=== PATIENT | male | born 1940 | race Caucasian/White ===

== ENCOUNTER 2017-07-16 12:31 | Inpatient (IN) ==
[~2017-07-16 12:31] MED LIST: KETAMINE 10 MG/ML ML IV PRN; MIDAZOLAM 2 MG/2 ML VIAL IV SCH; PROPOFOL 200 MG/20 ML VIAL IV SCH
[2017-07-16] MEDS ORDERED: MIDAZOLAM 2 MG/2 ML VIAL IV ONE (14:24)
[2017-07-16] MEDS ORDERED: PROPOFOL 200 MG/20 ML VIAL IV ONE ×2 (14:24→21:40)
[2017-07-16] MEDS ORDERED: DEXTROSE 5%-1/2NS 1,000 ML IV SCH (16:30)
[2017-07-16] MEDS ORDERED: HYDROmorphone 2 MG/ML VIAL IV SCH (17:15)
[2017-07-16] MEDS ORDERED: ONDANSETRON 4 MG/2 ML VIAL IV ONE ×2 (17:47→21:40)
[2017-07-16] MEDS ORDERED: ONDANSETRON 4 MG/2 ML VIAL ONE (17:49)
[2017-07-16] MEDS ORDERED: LORazepam 2 MG/ML VIAL IV PRN ×2 (17:58→18:53)
[2017-07-16] MEDS ORDERED: HYDROmorphone 2 MG/ML VIAL IV PRN ×2 (17:58→18:53)
[2017-07-16] MEDS ORDERED: PIPERACILLIN SODIUM/TAZOBACTAM 3.375 GM in DEXTROSE 5% IN WATER 50 ML IV SCH ×2 (18:00→20:00)
--- NOTE | 2017-07-16 18:08 | General Surg History&Physical ---
History of Present Illness Patient information: Note initiated : 07/16/17 at 5:59 pm Service Date, if different from initiated Date: [] Patient: Macho Morgan a 76 y/o M admitted on for Colonoscopy. Chief Complaint: [] HPI: Mr. Morgan is a 76 year old M who is status post screening colonoscopy earlier today. During the procedure it was noted that part of the colon was in a large left inguinal hernia. During the colonoscopy the scope was maneuvered in the hernia but at the end of the procedure it was difficult to get the scope out of the hernia sac. After the procedure was completed the patient had a very firm nonreducible hernia with increased pain. It is felt that he has an incarcerated hernia. He also had some increase fullness and burping. He has passed gas and he has voided since the end of the procedure. Patient is admitted and will have urgent CT of the abdomen and pelvis and a decision will be made as to whether or not the hernia should be repaired tonight or in the morning. He is status post left inguinal hernia repair in 2014 but had a recurrence shortly thereafter. Review of Systems - Constitutional no fatigue, no headache(s), no malaise, no weight loss - EENT Nose, mouth and throat: abnormal hearing, dry mouth, headache(s) - Cardiovascular no chest pain at rest, no dyspnea on exertion, no palpatations, no syncope - Respiratory no cough, no dyspnea on exertion, no wheezing, no chest congestion - Gastrointestinal abdominal pain, cramping, heartburn, nausea - Genitourinary nocturia, urinary frequency, urinary urgency - Musculoskeletal arthralgias, myalgias, stiffness - Integumentary no bleeding lesions, no changing lesions, no pruritus, no rash - Neurological no behavioral changes, no convulsions, no vertigo - Psychiatric no anxiety, no depression - Endocrine no excessive sweating, no heat intolerance, no palpitations, no polyuria - Hematologic/Lymphatic no easy bleeding, no easy bruising, no lymphadenopathy - Allergic/Immunologic no tongue swelling, no throat swelling, no uticaria, no wheezing, no lip swelling Past History Past medical history: History of esophageal cancer History of hypertension Chronic kidney disease BPH Past surgical history: Esophagectomy with esophagogastric anastomosis Left inguinal hernia repair Appendectomy Past family history: Carcinoma of the lung Coronary artery disease Past social history: uses chew tobacco Denies drug use Denies alcohol use Medications and Allergies Home Medications Medication Instructions Recorded Confirmed Type Atorvastatin [Lipitor] 20 mg PO HS 07/16/17 07/16/17 History Calcitonin,[place],Synthetic 3.7 ml NS 07/16/17 History [Calcitonin-Milan] Chlorpheniramine Maleate 4 mg PO Q4-6HP PRN 07/16/17 07/16/17 History [Chlor-Trimeton] Finasteride [Proscar] 5 mg PO DAILY 07/16/17 07/16/17 History Irbesartan [Avapro] 150 mg PO DAILY 07/16/17 07/16/17 History Pantoprazole Sodium [Protonix] 40 mg PO BID 07/16/17 07/16/17 History Potassium Chloride [K-Tab ER] 20 meq PO TID 07/16/17 07/16/17 History Spironolactone [Aldactone] 25 mg PO DAILY 07/16/17 07/16/17 History Tamsulosin [Flomax] 0.4 mg PO 1900 07/16/17 07/16/17 History amLODIPine BESYLATE [Amlodipine 10 mg PO DAILY 07/16/17 07/16/17 History Besylate] metFORMIN HCL [Metformin HCl ER] 500 mg PO 1700 07/16/17 07/16/17 History Allergies Allergy/AdvReac Type Severity Reaction Status Date / Time No Known Drug Allergies Allergy Unverified 07/16/17 13:20 Exam Temp Pulse Resp BP Pulse Ox 98.8 F 71 16 182/76 97 07/16/17 17:15 07/16/17 17:15 07/16/17 17:15 07/16/17 17:15 07/16/17 17:15 - General physical appearance well developed, well nourished, no distress - Eyes PERRL, normal ocular movement - ENT normal pinna, normal nares, normal mucosa, no hearing loss, no congestion - Head Head exam IM: Present: atraumatic, normocephalic - Neck no masses, no bruits, trachea midline, no lymphadectomy, no venous distension - Cardiovascular Cardiovascular exam IM: Present: normal rate and rhythm - Respiratory normal expansion, normal respiratory effort, clear to percussion, clear to auscultation - Abdomen Abdomen: Present: soft, non tender, bowel sounds, distended (Mild abdominal distention with active bowel sounds; well-healed upper midline incision) Hernia: Present: inguinal (Tightly incarcerated left inguinal hernia extending into the scrotum no crepitus noted) - Genitourinary Present: normal penis with no external lesions - Integumentary Present: no rash, no growths, no abnormal pigmentation - Neurologic Present: normal coordination, normal sensation - Musculoskeletal Present: normal gait, normal posture - Psychiatric Present: oriented to time, oriented to person, oriented to place, speech is normal, memory intact Assessment and Plan (1) Incarcerated left inguinal hernia Emergency CT of abdomen and pelvis Emergency baseline labs Emergency chest x-ray and EKG IV analgesics Status: Acute (2) History of esophageal cancer Status: Acute (3) Hypertension Hold home medications pending decision on surgery Status: Acute (4) Chronic kidney disease Status: Acute
[2017-07-16] MEDS ORDERED: IOPAMIDOL 100 ML BOTTLE IV ONE (18:47)
[2017-07-16] MEDS ORDERED: ONDANSETRON 4 MG/2 ML VIAL IV PRN (18:53)
[2017-07-16] MEDS ORDERED: METOPROLOL TARTRATE 5 MG/5 ML VIAL IV PRN (18:53)
[2017-07-16] MEDS ORDERED: 0.9 % SODIUM CHLORIDE 1,000 ML IV SCH (18:53)
[2017-07-16 19:36] LABS: Basophils # (Auto) 0 K/mcL (0.0-0.3); Basophils % (Auto) 0.2 % (0.0-2.0); Eosinophils # (Auto) 0 K/mcL (0.0-0.7); Eosinophils % (Auto) 0 % (0.0-7.0); Granulocytes % (Auto) 89.9 % (38.0-78.0); Lymphocytes # (Auto) 0.4 K/mcL (1.5-4.8); Lymphocytes % (Auto) 5.3 % (15.5-49.0); Mean Cell Volume 93.2 fL (80.0-100.0); Mean Corpuscular HGB Conc 33.4 g/dL (31.0-36.0); Mean Corpuscular Hemoglobin 31.1 pg (26.0-34.0); Monocytes # (Auto) 0.4 K/mcL (0.1-0.9); Monocytes % (Auto) 4.6 % (1.0-12.0); Platelet Count 142 K/mcL (140-440); RBC 4.96 M/mcL (4.50-5.90); Red Cell Distribution Width 13.9 % (11.5-14.5)
[2017-07-16] MEDS ORDERED: POTASSIUM CHLORIDE 20 MEQ/10 ML VIAL IV ONE (19:53)
[2017-07-16 19:56] LABS: ALT/SGPT 15 U/l (0-40); Albumin/Globulin Ratio 1.5 (1.0-2.3); Alkaline Phosphatase 78 U/L (39-117); Bilirubin,Direct < 0.2 mg/dL (0.0-0.3); Blood Urea Nitrogen 17 mg/dl (8-23); Gamma Glutamyl Transpeptidase 21 U/L (8-61); Uric Acid 4.6 mg/dL (2.5-8.0)
[2017-07-16] MEDS: POTASSIUM CHLORIDE 40 MEQ in DEXTROSE 5% IN WATER 500 ML IV SCH (20:35)
[2017-07-16] MEDS ORDERED: metroNIDAZOLE 500 MG/100 ML BAG IV SCH (20:45)
[2017-07-16] MEDS ORDERED: metroNIDAZOLE 500 MG/100 ML BAG IV ONE (20:57)
--- NOTE | 2017-07-16 21:02 | General Surgery Progress Note ---
Subjective Narrative: Note initiated : 07/16/17 at 9:00 pm Service Date, if different from initiated Date: [] Patient: Macho Morgan 76 y/o M admitted on 07/16/17 for Colonoscopy. Chief Complaint: [ C T of abdomen shows possible free air in scrotum and in wall of sigmoid colon. patient is counseled for laparotomy and possible bowel resection. he is also informed of possible colostomy.] Objective Temp Pulse Resp BP Pulse Ox 98.6 F 70 16 191/90 96 07/16/17 18:59 07/16/17 18:59 07/16/17 18:59 07/16/17 18:59 07/16/17 18:59 - Additional Data Intake & Output - Last 24 hours: Intake & Output 07/14/17 07/15/17 07/16/17 07/17/17 05:59 05:59 05:59 05:59 Weight 197 lb - Labs 07/16/17 18:55 07/16/17 18:55 Diabetes panel 07/16/17 Range/Units 18:55 Sodium 140 (133-145) mmol/L Potassium 3.0 L (3.3-5.1) mmol/L Chloride 103 (96-108) mmol/L Carbon Dioxide 25 (22-30) mmol/L BUN 17 (8-23) mg/dl Creatinine 1.0 (0.7-1.2) mg/dl Glucose 158 H (70-105) mg/dL Calcium 8.6 (8.6-10.4) mg/dl AST 21 (0-37) U/l ALT 15 (0-40) U/l Alkaline Phosphatase 78 (39-117) U/L Total Protein 6.6 (5.9-8.4) gm/dL Albumin 4.0 (3.2-5.2) gm/dL Triglycerides 189 H (<150) mg/dl Calcium panel 07/16/17 Range/Units 18:55 Calcium 8.6 (8.6-10.4) mg/dl Phosphorus 2.2 L (2.7-4.5) mg/dL Albumin 4.0 (3.2-5.2) gm/dL Pituitary panel 07/16/17 Range/Units 18:55 Sodium 140 (133-145) mmol/L Potassium 3.0 L (3.3-5.1) mmol/L Chloride 103 (96-108) mmol/L Carbon Dioxide 25 (22-30) mmol/L BUN 17 (8-23) mg/dl Creatinine 1.0 (0.7-1.2) mg/dl Glucose 158 H (70-105) mg/dL Calcium 8.6 (8.6-10.4) mg/dl Adrenal panel 07/16/17 Range/Units 18:55 Sodium 140 (133-145) mmol/L Potassium 3.0 L (3.3-5.1) mmol/L Chloride 103 (96-108) mmol/L Carbon Dioxide 25 (22-30) mmol/L BUN 17 (8-23) mg/dl Creatinine 1.0 (0.7-1.2) mg/dl Glucose 158 H (70-105) mg/dL Calcium 8.6 (8.6-10.4) mg/dl Total Bilirubin 0.7 (0.0-1.0) mg/dL AST 21 (0-37) U/l ALT 15 (0-40) U/l Alkaline Phosphatase 78 (39-117) U/L Total Protein 6.6 (5.9-8.4) gm/dL Albumin 4.0 (3.2-5.2) gm/dL Assessment and Plan (1) Incarcerated left inguinal hernia Status: Acute Current Visit: Yes (2) History of esophageal cancer Status: Acute Current Visit: Yes (3) Hypertension Status: Acute Current Visit: Yes (4) Chronic kidney disease Status: Acute Current Visit: Yes (5) Sigmoid colon injury without open wound into cavity Status: Acute Assessment and plan: EMERGENCY LAPAROTOMY SCHEDULED. PATIENT AND HIS COUNSELED FOR THE PROCEDURE. Current Visit: Yes - Time Spent With Patient Total time spent is greater than 50% in coordination of care (as documented) at patient's floor/unit and/or counseling patient:
[2017-07-16] MEDS ORDERED: SUCCINYLCHOLINE 20 MG/ML ML IV ONE (21:40)
[2017-07-16] MEDS ORDERED: MIDAZOLAM 5 MG/5 ML VIAL IV ONE (21:40)
[2017-07-16] MEDS ORDERED: fentaNYL 250 MCG/5 ML VIAL IV ONE (21:40)
[2017-07-16] MEDS ORDERED: NEOSTIGMINE 1 MG/ML VIAL IV ONE (21:40)
[2017-07-16] MEDS ORDERED: DEXAMETHASONE 10 MG/ML VIAL IV ONE (21:40)
[2017-07-16] MEDS ORDERED: ePHEDrine 50 MG/ML AMPUL IV ONE (21:40)
[2017-07-16] MEDS ORDERED: ROCURONIUM 10 MG/ML ML IV ONE (21:40)
[2017-07-16] MEDS ORDERED: GLYCOPYRROLATE 0.2 MG/ML VIAL IV ONE (21:40)
[2017-07-16] MEDS ORDERED: LIDOCAINE HCL/PF 100 MG/5 ML SYRINGE IV ONE (21:40)
[2017-07-16] MEDS ORDERED: 0.9 % SODIUM CHLORIDE 10 ML SYRINGE IV SCH (22:00)
[2017-07-16] MEDS ORDERED: BACITRACIN 50,000 UNIT VIAL IR ONE (23:42)
[2017-07-17] MEDS ORDERED: diphenhydrAMINE 50 MG/ML VIAL IV PRN (00:21)
[2017-07-17] MEDS ORDERED: NALOXONE HCL 0.4 MG/ML VIAL IV PRN (00:21)
[2017-07-17] MEDS ORDERED: IPRATROPIUM/ALBUTEROL 3 ML AMPUL.NEB NEB PRN (00:21)
[2017-07-17] MEDS ORDERED: fentaNYL 100 MCG/2 ML VIAL IV PRN (00:21)
[2017-07-17] MEDS ORDERED: FLUMAZENIL 0.1 MG/ML ML IV PRN (00:21)
[2017-07-17] MEDS ORDERED: ACETAMINOPHEN 1,000 MG/100 ML BOTTLE IV ONE (00:21)
[2017-07-17] MEDS ORDERED: MEPERIDINE 25 MG/ML SYRINGE IV PRN (00:21)
[2017-07-17] MEDS ORDERED: ONDANSETRON 4 MG/2 ML VIAL IV PRN ×2 (00:21→01:44)
[2017-07-17] MEDS ORDERED: LACTATED RINGERS 250 ML IV PRN (00:21)
[2017-07-17] MEDS ORDERED: PROMETHAZINE 25 MG/ML VIAL IV PRN (00:21)
[2017-07-17] MEDS ORDERED: BENZOCAINE/MENTHOL 1 LOZENGE PO PRN ×2 (00:21→01:44)
[2017-07-17] MEDS ORDERED: LACTATED RINGERS 1,000 ML IV SCH (00:30)
--- NOTE | 2017-07-17 01:03 | Brief Operative Note ---
Date of procedure: 07/17/17 Pre-op diagnosis: perforated sigmoid colon; incarcerated left inguinal hernia Post-op diagnosis: other (perforated sigmoid colon; incarcerated left inguinal hernia;strangulated left testicle with ischemia) Procedure: sigmoid colectomy with colostomy;left orchiectomy left inguinal hernia repair Grafts/Implants: No Anesthesia: GETA Findings: linear perforation of sigmoid colon colon with dissection of fluid and gas along mesentery;tight incarceration of colon in hernia sac with ecchymosis and ischemia compression of vessels of spermatic cord with pulseless left testicle by doppler with turbid fluid around testicle in hydrocoele; testicle not viable Complications: none Surgeon: Shea Boyce Estimated blood loss (cc): 100 Specimens Removed/Pathology: other (sigmoid colon ;left testicle) Condition: stable Disposition: PACU
[2017-07-17] MEDS ORDERED: LORazepam 2 MG/ML VIAL IV PRN (01:44)
[2017-07-17] MEDS ORDERED: ACETAMINOPHEN 1,000 MG/100 ML BOTTLE IV PRN (01:44)
[2017-07-17] MEDS ORDERED: HYDROmorphone 2 MG/ML VIAL IV PRN (01:44)
[2017-07-17] MEDS ORDERED: METOPROLOL TARTRATE 5 MG/5 ML VIAL IV PRN (01:44)
[2017-07-17] MEDS ORDERED: metroNIDAZOLE 500 MG/100 ML BAG IV ONE (02:08)
[2017-07-17] MEDS: PIPERACILLIN SODIUM/TAZOBACTAM 3.375 GM in DEXTROSE 5% IN WATER 50 ML IV SCH ×4 (02:15→17:57)
[2017-07-17] MEDS: 0.9 % SODIUM CHLORIDE 1,000 ML IV SCH ×4 (02:15→22:25)
[2017-07-17] MEDS: POTASSIUM CHLORIDE 40 MEQ in DEXTROSE 5% IN WATER 500 ML IV SCH (02:17)
[2017-07-17] MEDS: metroNIDAZOLE 500 MG/100 ML BAG IV SCH ×5 (02:54→23:07)
[2017-07-17] MEDS ORDERED: POTASSIUM CHLORIDE 40 MEQ in DEXTROSE 5% IN WATER 500 ML IV SCH (03:30)
[2017-07-17] MEDS ORDERED: METOPROLOL TARTRATE 5 MG/5 ML VIAL IV ONE (04:04)
[2017-07-17] MEDS ORDERED: POTASSIUM CHLORIDE 20 MEQ/10 ML VIAL IV ONE (05:21)
[2017-07-17] MEDS ORDERED: ENALAPRILAT 1.25 MG/ML VIAL IV ONE (05:33)
[2017-07-17 05:34] LABS: Basophils # (Auto) 0 K/mcL (0.0-0.3); Basophils % (Auto) 0.1 % (0.0-2.0); Eosinophils # (Auto) 0 K/mcL (0.0-0.7); Eosinophils % (Auto) 0.4 % (0.0-7.0); Granulocytes % (Auto) 92.3 % (38.0-78.0); Lymphocytes # (Auto) 0.3 K/mcL (1.5-4.8); Lymphocytes % (Auto) 3.1 % (15.5-49.0); Mean Cell Volume 91.3 fL (80.0-100.0); Mean Corpuscular HGB Conc 33.5 g/dL (31.0-36.0); Mean Corpuscular Hemoglobin 30.6 pg (26.0-34.0); Monocytes # (Auto) 0.3 K/mcL (0.1-0.9); Monocytes % (Auto) 4.1 % (1.0-12.0); Platelet Count 150 K/mcL (140-440); RBC 4.62 M/mcL (4.50-5.90); Red Cell Distribution Width 13.2 % (11.5-14.5)
[2017-07-17] MEDS ORDERED: METOCLOPRAMIDE 10 MG/2 ML VIAL ONE (05:37)
[2017-07-17 05:49] LABS: ALT/SGPT 13 U/l (0-40); Albumin 3.4 gm/dL (3.2-5.2); Albumin/Globulin Ratio 1.5 (1.0-2.3); Alkaline Phosphatase 58 U/L (39-117); Bilirubin,Direct 0.3 mg/dL (0.0-0.3); Blood Urea Nitrogen 13 mg/dl (8-23); Gamma Glutamyl Transpeptidase 17 U/L (8-61)
[2017-07-17] MEDS ORDERED: ENALAPRILAT 1.25 MG/ML VIAL IV SCH (06:00)
[2017-07-17] MEDS: METOCLOPRAMIDE 10 MG/2 ML VIAL IV SCH ×3 (06:07→17:56)
[2017-07-17] MEDS: ENALAPRILAT 1.25 MG/ML VIAL IV SCH ×3 (06:07→17:56)
[2017-07-17] MEDS ORDERED: INSULIN LISPRO 1 UNIT/0.01 ML UNIT SQ ONE (06:24)
[2017-07-17] MEDS: INSULIN LISPRO 1 UNIT/0.01 ML UNIT SQ SCH ×3 (06:25→18:18)
[2017-07-17] MEDS: PANTOPRAZOLE 40 MG VIAL IV SCH ×2 (07:22→17:00)
[2017-07-17] MEDS ORDERED: PANTOPRAZOLE 40 MG VIAL IV SCH ×3 (07:30)
--- NOTE | 2017-07-17 07:57 | Cat Scan Report ---
CLINICAL INFORMATION: Reason for Exam: incarcerated inguinal hernia COMPARISON: 05/01/16 TECHNIQUE: Following injection of intravenous contrast the patient was scanned during the portal venous phase from the diaphragm through the symphysis pubis. Sagittal and coronal reformats were created.. FINDINGS: There are bands of atelectasis in the left lung base. Gastric pull-through procedure has been performed. Patient had been treated for esophageal cancer. There are a couple simple cysts in the liver. There is no evidence of liver metastasis. The spleen is normal in size and homogeneous. There are two gallstones in the neck of the gallbladder. They measure up to 6 mm. At the head of the pancreas the common bile duct is mildly dilated and measures 1 cm. There is also mild dilatation of the pancreatic duct in the head and uncinate process. It Measures up to 6 mm. There is no evidence of a mass or inflammation in the pancreas. The adrenals are normal. There is a small simple cyst anteriorly in the lower pole the right kidney. The kidneys are otherwise normal. The proximal colon is mildly dilated with gas. There is an air-fluid level in the ascending colon and cecum. Descending colon is decompressed. There is a large left inguinal hernia containing the distal descending colon and proximal sigmoid colon. The hernia was present in 2016. It is larger today and has become incarcerated. The loop of entrapped bowel has become necrotic. There is gas in the wall of the entrapped segment of colon and there is also extraluminal gas indicating perforation. No abscess or ascites are present. The sigmoid colon distal to the obstruction is nondilated and contains several noninflamed diverticula. The prostate is very large and protrudes into the base of the bladder. IMPRESSION: Incarcerated hernia in the left groin with necrosis of the entrapped segment of distal descending and proximal sigmoid colon Dr. Boyce was called with results Interpreted and Authenticated by: Erlin Isabel 07/17/17
--- NOTE | 2017-07-17 07:58 | XRay Report ---
HISTORY: Reason for Exam:preop FINDINGS: The lungs are clear. The heart is mildly enlarged with left ventricular prominence. This is accentuated by portable technique. There is no congestive heart failure or pleural effusion. There is a Port-A-Cath placed through the right internal jugular vein into the superior vena cava. IMPRESSION: Mild cardiomegaly and no acute abnormality Interpreted and Authenticated by: Erlin Isabel 07/17/17
[2017-07-17] MEDS ORDERED: POTASSIUM PHOSPHATE 40 MEQ in DEXTROSE 5% IN WATER 500 ML IV ONE (17:37)
--- NOTE | 2017-07-17 17:37 | General Surgery Progress Note ---
Subjective Patient reports: still having pain, no flatus, no bowel movement, afebrile Narrative: Note initiated : 07/17/17 at 5:37 pm Service Date, if different from initiated Date: [] Patient: Macho Morgan 76 y/o M admitted on 07/17/17 for Colonoscopy/Perf Sigmoid Colon/Lt Inguinal Hernia. Chief Complaint: [Patient is doing well. He has the anticipated amount of pain. He asked questions about his procedure and the intraoperative findings and subsequent surgical procedures were explained to him. He seems to accept the fact that he will need to have a colostomy. He is informed that this will be for about 8 weeks and we can do a re-anastomosis at that time. He denies any respiratory difficulty] Objective Temp Pulse Resp BP Pulse Ox 99.7 F H 69 16 142/64 97 07/17/17 16:00 07/17/17 11:33 07/17/17 16:00 07/17/17 16:00 07/17/17 16:00 - Additional Data Intake & Output - Last 24 hours: Intake & Output 07/15/17 07/16/17 07/17/17 07/18/17 05:59 05:59 05:59 05:59 Intake Total 4422 / 4422 733 / 733 Output Total 950 / 950 575 / 575 Balance 3472 / 3472 158 / 158 Weight 197 lb - General physical appearance well developed, well nourished, moderate distress, moderate pain - Eyes PERRL, normal ocular movement - ENT normal pinna, normal nares, normal mucosa, no hearing loss, no congestion - Neck no masses, no bruits, trachea midline, no lymphadectomy, no venous distension - Respiratory normal expansion, normal respiratory effort, clear to percussion, clear to auscultation - Cardiovascular Cardiovascular exam: Present: normal rate and rhythm, RRR, +S1, +S2. Absent: JVD - Abdomen tender, bowel sounds (present), surgical scars (none), masses (none) - Integumentary no rash, no growths, no abnormal pigmentation - Neurologic normal coordination, normal sensation - Musculoskeletal normal gait, normal posture - Psychiatric oriented to time, oriented to person, oriented to place, speech is normal, memory intact - Labs 07/23/17 04:50 07/22/17 05:00 Diabetes panel 07/16/17 07/17/17 Range/Units 18:55 04:00 Sodium 140 140 (133-145) mmol/L Potassium 3.0 L 3.2 L (3.3-5.1) mmol/L Chloride 103 101 (96-108) mmol/L Carbon Dioxide 25 26 (22-30) mmol/L BUN 17 13 (8-23) mg/dl Creatinine 1.0 1.0 (0.7-1.2) mg/dl Glucose 158 H 209 H (70-105) mg/dL Calcium 8.6 8.2 L (8.6-10.4) mg/dl AST 21 16 (0-37) U/l ALT 15 13 (0-40) U/l Alkaline Phosphatase 78 58 (39-117) U/L Total Protein 6.6 5.7 L (5.9-8.4) gm/dL Albumin 4.0 3.4 (3.2-5.2) gm/dL Triglycerides 189 H 86 (<150) mg/dl Calcium panel 07/16/17 07/17/17 Range/Units 18:55 04:00 Calcium 8.6 8.2 L (8.6-10.4) mg/dl Phosphorus 2.2 L 2.4 L (2.7-4.5) mg/dL Albumin 4.0 3.4 (3.2-5.2) gm/dL Pituitary panel 07/16/17 07/17/17 Range/Units 18:55 04:00 Sodium 140 140 (133-145) mmol/L Potassium 3.0 L 3.2 L (3.3-5.1) mmol/L Chloride 103 101 (96-108) mmol/L Carbon Dioxide 25 26 (22-30) mmol/L BUN 17 13 (8-23) mg/dl Creatinine 1.0 1.0 (0.7-1.2) mg/dl Glucose 158 H 209 H (70-105) mg/dL Calcium 8.6 8.2 L (8.6-10.4) mg/dl Adrenal panel 07/16/17 07/17/17 Range/Units 18:55 04:00 Sodium 140 140 (133-145) mmol/L Potassium 3.0 L 3.2 L (3.3-5.1) mmol/L Chloride 103 101 (96-108) mmol/L Carbon Dioxide 25 26 (22-30) mmol/L BUN 17 13 (8-23) mg/dl Creatinine 1.0 1.0 (0.7-1.2) mg/dl Glucose 158 H 209 H (70-105) mg/dL Calcium 8.6 8.2 L (8.6-10.4) mg/dl Total Bilirubin 0.7 1.1 H (0.0-1.0) mg/dL AST 21 16 (0-37) U/l ALT 15 13 (0-40) U/l Alkaline Phosphatase 78 58 (39-117) U/L Total Protein 6.6 5.7 L (5.9-8.4) gm/dL Albumin 4.0 3.4 (3.2-5.2) gm/dL Assessment and Plan (1) Incarcerated left inguinal hernia Status: Acute Assessment and plan: Stable postoperative day 1 Current Visit: Yes (2) History of esophageal cancer Status: Acute Current Visit: Yes (3) Hypertension Status: Acute Current Visit: Yes (4) Chronic kidney disease Status: Acute Current Visit: Yes (5) Sigmoid colon injury without open wound into cavity Status: Acute Assessment and plan: We will continue present therapy Current Visit: Yes - Time Spent With Patient Total time spent is greater than 50% in coordination of care (as documented) at patient's floor/unit and/or counseling patient:
[2017-07-18] MEDS: METOCLOPRAMIDE 10 MG/2 ML VIAL IV SCH ×5 (00:43→23:56)
[2017-07-18] MEDS: ENALAPRILAT 1.25 MG/ML VIAL IV SCH ×5 (00:43→23:56)
[2017-07-18] MEDS: PIPERACILLIN SODIUM/TAZOBACTAM 3.375 GM in DEXTROSE 5% IN WATER 50 ML IV SCH ×5 (00:44→23:56)
[2017-07-18] MEDS: INSULIN LISPRO 1 UNIT/0.01 ML UNIT SQ SCH ×4 (00:49→17:54)
[2017-07-18] MEDS ORDERED: POTASSIUM PHOSPHATE 40 MEQ in DEXTROSE 5% IN WATER 500 ML IV ONE (01:00)
[2017-07-18] MEDS: metroNIDAZOLE 500 MG/100 ML BAG IV SCH ×3 (05:50→18:55)
[2017-07-18 06:04] LABS: Basophils # (Auto) 0 K/mcL (0.0-0.3); Basophils % (Auto) 0.2 % (0.0-2.0); Eosinophils # (Auto) 0 K/mcL (0.0-0.7); Eosinophils % (Auto) 0.4 % (0.0-7.0); Granulocytes % (Auto) 90.1 % (38.0-78.0); Lymphocytes # (Auto) 0.5 K/mcL (1.5-4.8); Lymphocytes % (Auto) 5.2 % (15.5-49.0); Mean Cell Volume 92.9 fL (80.0-100.0); Mean Corpuscular HGB Conc 33.1 g/dL (31.0-36.0); Mean Corpuscular Hemoglobin 30.7 pg (26.0-34.0); Monocytes # (Auto) 0.4 K/mcL (0.1-0.9); Monocytes % (Auto) 4.1 % (1.0-12.0); Platelet Count 130 K/mcL (140-440); RBC 4.15 M/mcL (4.50-5.90); Red Cell Distribution Width 13.6 % (11.5-14.5)
[2017-07-18 06:19] LABS: ALT/SGPT 11 U/l (0-40); Albumin 3.1 gm/dL (3.2-5.2); Albumin/Globulin Ratio 1.3 (1.0-2.3); Alkaline Phosphatase 59 U/L (39-117); Bilirubin,Direct < 0.2 mg/dL (0.0-0.3); Blood Urea Nitrogen 15 mg/dl (8-23); Gamma Glutamyl Transpeptidase 15 U/L (8-61); Uric Acid 2.2 mg/dL (2.5-8.0)
[2017-07-18] MEDS: PANTOPRAZOLE 40 MG VIAL IV SCH ×2 (07:09→17:15)
[2017-07-18] MEDS: 0.9 % SODIUM CHLORIDE 1,000 ML IV SCH ×2 (07:13→17:14)
--- NOTE | 2017-07-18 09:18 | Colonoscopy Procedure Note ---
Colonoscopy Procedure Notes - Procedure Information Patient information: Note initiated : 07/18/17 at 9:14 am Service Date: 07/16/17 Patient: Macho Morgan 76 y/o M admitted on 07/17/17 for Colonoscopy/Perf Sigmoid Colon/Lt Inguinal Hernia. Pre-op diagnosis general: Screening. Post-op diagnosis general: Normal screening. Sigmoid diverticulosis with fixation. Procedure narrative: The procedure, alternatives and risks were discussed with the patient and the patient's questions were answered. With intravenous sedation, the Olympus colonoscope was introduced into the rectum and advanced to the cecum. There was significant fixation of the proximal sigmoid colon secondary to an inguinal hernia. It was quite difficult to traverse but ultimately was able to pass by the hernia with external pressure. Ileocecal valve was identified, intubated, and several centimeters of the terminal ileum were examined and appeared normal. Tattoo was soon in the mid transvesre colon. There was no recurrent polyp. There were no colonic polyps. Uncomplicated diverticula were seen. As the scope was withdrawn, the scope became lodged within the hernia and some difficulty was had in withdrawing the scope, although the scope was ultimately withdrawn. Assessment: Normal screening. Sigmoid diverticulosis with fixation. Folloiwng procedure, left inguina hernia would not reduce so the colonoscope was reinstered and air with drawn. Hernia reduced.Case was discussed with Dr. Boyce , general surgeon, who will admit him.
--- NOTE | 2017-07-18 14:26 | General Surgery Progress Note ---
Subjective Patient reports: feels better, pain is less, flatus, no bowel movement, afebrile Narrative: Note initiated : 07/18/17 at 2:24 pm Service Date, if different from initiated Date: [] Patient: Macho Morgan 76 y/o M admitted on 07/17/17 for Colonoscopy/Perf Sigmoid Colon/Lt Inguinal Hernia. Chief Complaint: [Patient is doing well. His pain is well controlled. He denies chest pain or shortness of breath. He has started to have flatus through his stoma. He does not have any abdominal distention. His stoma looks healthy.] Objective Temp Pulse Resp BP Pulse Ox 99.9 F H 64 18 134/82 97 07/18/17 11:33 07/18/17 11:33 07/18/17 11:33 07/18/17 11:33 07/18/17 11:33 - Additional Data Intake & Output - Last 24 hours: Intake & Output 07/16/17 07/17/17 07/18/17 07/19/17 05:59 05:59 05:59 05:59 Intake Total 4422 / 4422 3742.0909 / 3742.0909 100 / 100 Output Total 950 / 950 1275 / 1275 1100 / 1100 Balance 3472 / 3472 2467.0909 / 2467.0909 -1000 / -1000 Weight 197 lb 197 lb 197 lb - General physical appearance well developed, well nourished, no distress, severe distress - Eyes PERRL, normal ocular movement - ENT normal pinna, normal nares, normal mucosa, no hearing loss, no congestion - Neck no venous distension - Respiratory normal expansion, normal respiratory effort, clear to percussion, clear to auscultation - Cardiovascular Cardiovascular exam: Present: normal rate and rhythm, RRR, +S1, +S2. Absent: JVD - Abdomen non tender, bowel sounds (present), surgical scars (Surgical incision looks good ; stoma is healthy), masses (none) - Genitourinary other (No major swelling left scrotal sac) - Integumentary no rash, no growths, no abnormal pigmentation - Neurologic normal coordination, normal sensation - Musculoskeletal normal gait, normal posture - Psychiatric oriented to time, oriented to person, oriented to place, speech is normal, memory intact - Labs 07/18/17 04:20 07/18/17 04:20 Diabetes panel 07/18/17 Range/Units 04:20 Sodium 142 (133-145) mmol/L Potassium 4.1 (3.3-5.1) mmol/L Chloride 105 (96-108) mmol/L Carbon Dioxide 25 (22-30) mmol/L BUN 15 (8-23) mg/dl Creatinine 1.2 (0.7-1.2) mg/dl Glucose 136 H (70-105) mg/dL Calcium 8.4 L (8.6-10.4) mg/dl AST 17 (0-37) U/l ALT 11 (0-40) U/l Alkaline Phosphatase 59 (39-117) U/L Total Protein 5.5 L (5.9-8.4) gm/dL Albumin 3.1 L (3.2-5.2) gm/dL Triglycerides 60 (<150) mg/dl Calcium panel 07/18/17 Range/Units 04:20 Calcium 8.4 L (8.6-10.4) mg/dl Phosphorus 3.3 (2.7-4.5) mg/dL Albumin 3.1 L (3.2-5.2) gm/dL Pituitary panel 07/18/17 Range/Units 04:20 Sodium 142 (133-145) mmol/L Potassium 4.1 (3.3-5.1) mmol/L Chloride 105 (96-108) mmol/L Carbon Dioxide 25 (22-30) mmol/L BUN 15 (8-23) mg/dl Creatinine 1.2 (0.7-1.2) mg/dl Glucose 136 H (70-105) mg/dL Calcium 8.4 L (8.6-10.4) mg/dl Adrenal panel 07/18/17 Range/Units 04:20 Sodium 142 (133-145) mmol/L Potassium 4.1 (3.3-5.1) mmol/L Chloride 105 (96-108) mmol/L Carbon Dioxide 25 (22-30) mmol/L BUN 15 (8-23) mg/dl Creatinine 1.2 (0.7-1.2) mg/dl Glucose 136 H (70-105) mg/dL Calcium 8.4 L (8.6-10.4) mg/dl Total Bilirubin 0.7 (0.0-1.0) mg/dL AST 17 (0-37) U/l ALT 11 (0-40) U/l Alkaline Phosphatase 59 (39-117) U/L Total Protein 5.5 L (5.9-8.4) gm/dL Albumin 3.1 L (3.2-5.2) gm/dL Assessment and Plan (1) Incarcerated left inguinal hernia Status: Acute Assessment and plan: Incision is healing nicely without significant edema and without erythema Scrotal sac is soft without evidence of hematoma Current Visit: Yes (2) History of esophageal cancer Status: Acute Current Visit: Yes (3) Hypertension Status: Acute Current Visit: Yes (4) Chronic kidney disease Status: Acute Current Visit: Yes (5) Sigmoid colon injury without open wound into cavity Status: Acute Assessment and plan: Incision looks good and stoma is healthy Current Visit: Yes - Time Spent With Patient Total time spent is greater than 50% in coordination of care (as documented) at patient's floor/unit and/or counseling patient:
[2017-07-19] MEDS: metroNIDAZOLE 500 MG/100 ML BAG IV SCH ×5 (00:39→23:41)
[2017-07-19] MEDS: INSULIN LISPRO 1 UNIT/0.01 ML UNIT SQ SCH ×5 (00:39→23:48)
[2017-07-19] MEDS: 0.9 % SODIUM CHLORIDE 1,000 ML IV SCH ×4 (06:08→22:23)
[2017-07-19] MEDS: PIPERACILLIN SODIUM/TAZOBACTAM 3.375 GM in DEXTROSE 5% IN WATER 50 ML IV SCH ×3 (06:11→17:34)
[2017-07-19 06:23] LABS: Basophils # (Auto) 0 K/mcL (0.0-0.3); Basophils % (Auto) 0.2 % (0.0-2.0); Eosinophils # (Auto) 0 K/mcL (0.0-0.7); Eosinophils % (Auto) 0.1 % (0.0-7.0); Granulocytes % (Auto) 90.1 % (38.0-78.0); Lymphocytes # (Auto) 0.6 K/mcL (1.5-4.8); Lymphocytes % (Auto) 5.5 % (15.5-49.0); Mean Cell Volume 93.7 fL (80.0-100.0); Mean Corpuscular HGB Conc 33.8 g/dL (31.0-36.0); Mean Corpuscular Hemoglobin 31.7 pg (26.0-34.0); Monocytes # (Auto) 0.5 K/mcL (0.1-0.9); Monocytes % (Auto) 4.1 % (1.0-12.0); Platelet Count 140 K/mcL (140-440); RBC 4.06 M/mcL (4.50-5.90); Red Cell Distribution Width 13.9 % (11.5-14.5)
[2017-07-19 06:28] LABS: ALT/SGPT 11 U/l (0-40); Albumin 2.9 gm/dL (3.2-5.2); Albumin/Globulin Ratio 1.1 (1.0-2.3); Alkaline Phosphatase 57 U/L (39-117); Bilirubin,Direct 0.2 mg/dL (0.0-0.3); Blood Urea Nitrogen 11 mg/dl (8-23); Gamma Glutamyl Transpeptidase 17 U/L (8-61); Uric Acid 2.4 mg/dL (2.5-8.0)
[2017-07-19] MEDS: ENALAPRILAT 1.25 MG/ML VIAL IV SCH ×4 (07:00→23:44)
[2017-07-19] MEDS: METOCLOPRAMIDE 10 MG/2 ML VIAL IV SCH ×4 (07:00→23:43)
[2017-07-19] MEDS: PANTOPRAZOLE 40 MG VIAL IV SCH ×2 (08:38→17:33)
--- NOTE | 2017-07-19 15:31 | General Surgery Progress Note ---
Subjective Patient reports: feels better, pain is less, flatus, bowel movement, afebrile Narrative: Note initiated : 07/19/17 at 3:29 pm Service Date, if different from initiated Date: [] Patient: Macho Morgan 76 y/o M admitted on 07/17/17 for Colonoscopy/Perf Sigmoid Colon/Lt Inguinal Hernia. Chief Complaint: [Patient is doing very well. His pain is controlled. He has had increased gas and stool through his stoma. He denies nausea. He remains afebrile.] Objective Temp Pulse Resp BP Pulse Ox 98.3 F 99 H 16 159/87 94 07/19/17 15:20 07/19/17 04:00 07/19/17 15:20 07/19/17 15:20 07/19/17 15:20 - Additional Data Intake & Output - Last 24 hours: Intake & Output 07/17/17 07/18/17 07/19/17 07/20/17 05:59 05:59 05:59 05:59 Intake Total 4422 / 4422 3742.0909 / 3742.0909 3159.0909 / 3159.0909 510 / 510 Output Total 950 / 950 1275 / 1275 4175 / 4175 550 / 550 Balance 3472 / 3472 2467.0909 / 2467.0909 -1015.9091 / -1015.9091 -40 / -40 Weight 197 lb 197 lb 201 lb - General physical appearance well developed, well nourished, no distress, moderate pain - Eyes PERRL, normal ocular movement - ENT normal pinna, normal nares, normal mucosa, no hearing loss, no congestion - Neck no masses, no bruits, trachea midline, no lymphadectomy, no venous distension - Respiratory normal respiratory effort, clear to auscultation - Cardiovascular Cardiovascular exam: Present: normal rate and rhythm, RRR, +S1, +S2. Absent: JVD - Abdomen tender (Mild incisional tenderness otherwise abdominal exam is benign; he has good active bowel sounds; stoma is healthy and functioning appropriately), bowel sounds (present), surgical scars (none), masses (none) - Integumentary no rash, no growths, no abnormal pigmentation - Neurologic normal coordination, normal sensation - Musculoskeletal normal gait, normal posture - Psychiatric oriented to time, oriented to person, oriented to place, speech is normal, memory intact - Labs 07/19/17 05:00 07/19/17 05:00 Diabetes panel 07/19/17 Range/Units 05:00 Sodium 140 (133-145) mmol/L Potassium 3.2 L (3.3-5.1) mmol/L Chloride 105 (96-108) mmol/L Carbon Dioxide 25 (22-30) mmol/L BUN 11 (8-23) mg/dl Creatinine 1.0 (0.7-1.2) mg/dl Glucose 90 (70-105) mg/dL Calcium 8.5 L (8.6-10.4) mg/dl AST 15 (0-37) U/l ALT 11 (0-40) U/l Alkaline Phosphatase 57 (39-117) U/L Total Protein 5.5 L (5.9-8.4) gm/dL Albumin 2.9 L (3.2-5.2) gm/dL Triglycerides 66 (<150) mg/dl Calcium panel 07/19/17 Range/Units 05:00 Calcium 8.5 L (8.6-10.4) mg/dl Phosphorus 1.8 L (2.7-4.5) mg/dL Albumin 2.9 L (3.2-5.2) gm/dL Pituitary panel 07/19/17 Range/Units 05:00 Sodium 140 (133-145) mmol/L Potassium 3.2 L (3.3-5.1) mmol/L Chloride 105 (96-108) mmol/L Carbon Dioxide 25 (22-30) mmol/L BUN 11 (8-23) mg/dl Creatinine 1.0 (0.7-1.2) mg/dl Glucose 90 (70-105) mg/dL Calcium 8.5 L (8.6-10.4) mg/dl Adrenal panel 07/19/17 Range/Units 05:00 Sodium 140 (133-145) mmol/L Potassium 3.2 L (3.3-5.1) mmol/L Chloride 105 (96-108) mmol/L Carbon Dioxide 25 (22-30) mmol/L BUN 11 (8-23) mg/dl Creatinine 1.0 (0.7-1.2) mg/dl Glucose 90 (70-105) mg/dL Calcium 8.5 L (8.6-10.4) mg/dl Total Bilirubin 0.8 (0.0-1.0) mg/dL AST 15 (0-37) U/l ALT 11 (0-40) U/l Alkaline Phosphatase 57 (39-117) U/L Total Protein 5.5 L (5.9-8.4) gm/dL Albumin 2.9 L (3.2-5.2) gm/dL Assessment and Plan (1) Incarcerated left inguinal hernia Status: Acute Assessment and plan: Incision is healing nicely without significant edema and without erythema Scrotal sac is soft without evidence of hematoma Clear liquid diet Discontinue Millan catheter Current Visit: Yes (2) History of esophageal cancer Status: Acute Current Visit: Yes (3) Hypertension Status: Acute Current Visit: Yes (4) Chronic kidney disease Status: Acute Current Visit: Yes (5) Sigmoid colon injury without open wound into cavity Status: Acute Assessment and plan: Incision looks good and stoma is healthy Current Visit: Yes - Time Spent With Patient Total time spent is greater than 50% in coordination of care (as documented) at patient's floor/unit and/or counseling patient:
[2017-07-19] MEDS: POTASSIUM PHOSPHATE 40 MEQ in DEXTROSE 5% IN WATER 500 ML IV SCH ×2 (16:19→20:23)
[2017-07-20] MEDS: PIPERACILLIN SODIUM/TAZOBACTAM 3.375 GM in DEXTROSE 5% IN WATER 50 ML IV SCH ×4 (00:50→17:28)
[2017-07-20] MEDS: ENALAPRILAT 1.25 MG/ML VIAL IV SCH ×4 (05:21→23:48)
[2017-07-20] MEDS: METOCLOPRAMIDE 10 MG/2 ML VIAL IV SCH ×4 (05:21→23:48)
[2017-07-20 05:56] LABS: Basophils # (Auto) 0 K/mcL (0.0-0.3); Basophils % (Auto) 0.1 % (0.0-2.0); Eosinophils # (Auto) 0.3 K/mcL (0.0-0.7); Eosinophils % (Auto) 3.7 % (0.0-7.0); Granulocytes % (Auto) 79.6 % (38.0-78.0); Lymphocytes % (Auto) 10.4 % (15.5-49.0); Mean Cell Volume 94.3 fL (80.0-100.0); Mean Corpuscular HGB Conc 33.5 g/dL (31.0-36.0); Mean Corpuscular Hemoglobin 31.6 pg (26.0-34.0); Monocytes # (Auto) 0.6 K/mcL (0.1-0.9); Monocytes % (Auto) 6.2 % (1.0-12.0); Platelet Count 145 K/mcL (140-440); RBC 3.87 M/mcL (4.50-5.90); Red Cell Distribution Width 13.7 % (11.5-14.5)
[2017-07-20] MEDS: metroNIDAZOLE 500 MG/100 ML BAG IV SCH ×4 (06:14→23:47)
[2017-07-20] MEDS: INSULIN LISPRO 1 UNIT/0.01 ML UNIT SQ SCH ×3 (06:20→17:35)
[2017-07-20 06:29] LABS: ALT/SGPT 10 U/l (0-40); Albumin 2.9 gm/dL (3.2-5.2); Albumin/Globulin Ratio 1.1 (1.0-2.3); Alkaline Phosphatase 58 U/L (39-117); Bilirubin,Direct < 0.2 mg/dL (0.0-0.3); Blood Urea Nitrogen 15 mg/dl (8-23); Gamma Glutamyl Transpeptidase 18 U/L (8-61)
[2017-07-20] MEDS: PANTOPRAZOLE 40 MG VIAL IV SCH ×2 (08:20→17:18)
[2017-07-20] MEDS: 0.9 % SODIUM CHLORIDE 1,000 ML IV SCH ×2 (09:07→23:44)
[2017-07-20] MEDS: amLODIPine 10 MG TABLET PO SCH (10:28)
[2017-07-20] MEDS: SPIRONOLACTONE 25 MG TABLET PO SCH (10:28)
[2017-07-20] MEDS: POTASSIUM CHLORIDE 20 MEQ TABLET PO SCH ×2 (10:28→20:32)
--- NOTE | 2017-07-20 14:59 | General Surgery Progress Note ---
Subjective Patient reports: feels better, pain is less, tolerating liquids well, flatus, bowel movement, afebrile Narrative: Note initiated : 07/20/17 at 2:57 pm Service Date, if different from initiated Date: [] Patient: Macho Morgan 76 y/o M admitted on 07/17/17 for Colonoscopy/Perf Sigmoid Colon/Lt Inguinal Hernia. Chief Complaint: [Patient continues to do well. His pain has improved. He has good output through his stoma. He is taking liquids without difficulty. He denies nausea or vomiting. He remains afebrile.] Objective Temp Pulse Resp BP Pulse Ox 97.8 F 55 L 12 181/85 91 07/20/17 11:13 07/20/17 11:13 07/20/17 11:13 07/20/17 11:13 07/20/17 11:13 - Additional Data Intake & Output - Last 24 hours: Intake & Output 07/18/17 07/19/17 07/20/17 07/21/17 05:59 05:59 05:59 05:59 Intake Total 3742.0909 / 3742.0909 3159.0909 / 3159.0909 2789 / 2789 200 / 200 Output Total 1275 / 1275 4175 / 4175 1750 / 1750 950 / 950 Balance 2467.0909 / 2467.0909 -1015.9091 / -1015.9091 1039 / 1039 -750 / -750 Weight 197 lb 201 lb 200 lb 8 oz - General physical appearance well developed, well nourished, no distress - Eyes PERRL, normal ocular movement - ENT normal pinna, normal nares, normal mucosa, no hearing loss, no congestion - Neck no masses, no bruits, trachea midline, no lymphadectomy, no venous distension - Respiratory normal expansion, normal respiratory effort, clear to percussion, clear to auscultation - Cardiovascular Cardiovascular exam: Present: normal rate and rhythm, RRR, +S1, +S2. Absent: JVD - Abdomen soft, tender (Mild tenderness along incision; good active bowel sounds) - Genitourinary normal penis with no external lesions, testicles non-tender, other (Left hemiscrotum without major swelling) - Integumentary no rash, no growths, no abnormal pigmentation - Neurologic normal coordination, normal sensation - Musculoskeletal normal gait, normal posture - Psychiatric oriented to time, oriented to person, oriented to place, speech is normal, memory intact - Labs 07/20/17 04:00 07/20/17 04:00 Diabetes panel 07/20/17 Range/Units 04:00 Sodium 141 (133-145) mmol/L Potassium 3.0 L (3.3-5.1) mmol/L Chloride 105 (96-108) mmol/L Carbon Dioxide 24 (22-30) mmol/L BUN 15 (8-23) mg/dl Creatinine 1.0 (0.7-1.2) mg/dl Glucose 96 (70-105) mg/dL Calcium 8.5 L (8.6-10.4) mg/dl AST 12 (0-37) U/l ALT 10 (0-40) U/l Alkaline Phosphatase 58 (39-117) U/L Total Protein 5.5 L (5.9-8.4) gm/dL Albumin 2.9 L (3.2-5.2) gm/dL Triglycerides 86 (<150) mg/dl Calcium panel 07/20/17 Range/Units 04:00 Calcium 8.5 L (8.6-10.4) mg/dl Phosphorus 2.6 L (2.7-4.5) mg/dL Albumin 2.9 L (3.2-5.2) gm/dL Pituitary panel 07/20/17 Range/Units 04:00 Sodium 141 (133-145) mmol/L Potassium 3.0 L (3.3-5.1) mmol/L Chloride 105 (96-108) mmol/L Carbon Dioxide 24 (22-30) mmol/L BUN 15 (8-23) mg/dl Creatinine 1.0 (0.7-1.2) mg/dl Glucose 96 (70-105) mg/dL Calcium 8.5 L (8.6-10.4) mg/dl Adrenal panel 07/20/17 Range/Units 04:00 Sodium 141 (133-145) mmol/L Potassium 3.0 L (3.3-5.1) mmol/L Chloride 105 (96-108) mmol/L Carbon Dioxide 24 (22-30) mmol/L BUN 15 (8-23) mg/dl Creatinine 1.0 (0.7-1.2) mg/dl Glucose 96 (70-105) mg/dL Calcium 8.5 L (8.6-10.4) mg/dl Total Bilirubin 0.8 (0.0-1.0) mg/dL AST 12 (0-37) U/l ALT 10 (0-40) U/l Alkaline Phosphatase 58 (39-117) U/L Total Protein 5.5 L (5.9-8.4) gm/dL Albumin 2.9 L (3.2-5.2) gm/dL Assessment and Plan (1) Incarcerated left inguinal hernia Status: Acute Assessment and plan: Incision is healing nicely without significant edema and without erythema Scrotal sac is soft without evidence of hematoma full liquids Current Visit: Yes (2) History of esophageal cancer Status: Acute Current Visit: Yes (3) Hypertension Status: Acute Current Visit: Yes (4) Chronic kidney disease Status: Acute Current Visit: Yes (5) Sigmoid colon injury without open wound into cavity Status: Acute Assessment and plan: Incision looks good and stoma is healthy Current Visit: Yes - Time Spent With Patient Total time spent is greater than 50% in coordination of care (as documented) at patient's floor/unit and/or counseling patient:
[2017-07-20] MEDS: POTASSIUM PHOSPHATE 40 MEQ in DEXTROSE 5% IN WATER 500 ML IV SCH ×2 (15:12→19:13)
[2017-07-20] MEDS: TAMSULOSIN 0.4 MG CAPSULE PO SCH (19:13)
[2017-07-21] MEDS: INSULIN LISPRO 1 UNIT/0.01 ML UNIT SQ SCH ×5 (00:26→23:54)
[2017-07-21] MEDS: PIPERACILLIN SODIUM/TAZOBACTAM 3.375 GM in DEXTROSE 5% IN WATER 50 ML IV SCH ×5 (00:26→23:41)
[2017-07-21] MEDS: metroNIDAZOLE 500 MG/100 ML BAG IV SCH ×4 (05:29→23:41)
[2017-07-21] MEDS: ENALAPRILAT 1.25 MG/ML VIAL IV SCH ×4 (05:40→23:41)
[2017-07-21] MEDS: METOCLOPRAMIDE 10 MG/2 ML VIAL IV SCH ×4 (05:40→23:42)
[2017-07-21 06:29] LABS: Basophils # (Auto) 0 K/mcL (0.0-0.3); Basophils % (Auto) 0.2 % (0.0-2.0); Eosinophils # (Auto) 0.4 K/mcL (0.0-0.7); Eosinophils % (Auto) 4.9 % (0.0-7.0); Granulocytes % (Auto) 74.9 % (38.0-78.0); Lymphocytes # (Auto) 0.8 K/mcL (1.5-4.8); Lymphocytes % (Auto) 11.1 % (15.5-49.0); Mean Cell Volume 93.6 fL (80.0-100.0); Mean Corpuscular HGB Conc 33.8 g/dL (31.0-36.0); Mean Corpuscular Hemoglobin 31.6 pg (26.0-34.0); Monocytes # (Auto) 0.7 K/mcL (0.1-0.9); Monocytes % (Auto) 8.9 % (1.0-12.0); Platelet Count 145 K/mcL (140-440); RBC 3.92 M/mcL (4.50-5.90); Red Cell Distribution Width 14.1 % (11.5-14.5)
[2017-07-21 06:49] LABS: ALT/SGPT 10 U/l (0-40); Albumin 2.9 gm/dL (3.2-5.2); Albumin/Globulin Ratio 1.1 (1.0-2.3); Alkaline Phosphatase 54 U/L (39-117); Bilirubin,Direct < 0.2 mg/dL (0.0-0.3); Blood Urea Nitrogen 10 mg/dl (8-23); Gamma Glutamyl Transpeptidase 17 U/L (8-61); Uric Acid 2.5 mg/dL (2.5-8.0)
[2017-07-21] MEDS: PANTOPRAZOLE 40 MG VIAL IV SCH ×2 (07:25→18:02)
[2017-07-21] MEDS: 0.9 % SODIUM CHLORIDE 1,000 ML IV SCH ×3 (07:25→18:05)
[2017-07-21] MEDS: SPIRONOLACTONE 25 MG TABLET PO SCH (08:46)
[2017-07-21] MEDS: LOSARTAN 50 MG TABLET PO SCH (08:47)
[2017-07-21] MEDS: amLODIPine 10 MG TABLET PO SCH (08:47)
[2017-07-21] MEDS ORDERED: SPIRONOLACTONE 25 MG TABLET PO SCH (09:00)
[2017-07-21] MEDS ORDERED: amLODIPine 10 MG TABLET PO SCH (09:00)
--- NOTE | 2017-07-21 13:17 | Surgical Pathology Report ---
HISTOLOGY SPECIMEN MICROSCOPIC DIAGNOSIS SPECIMEN A - COLON, SIGMOID, SEGMENTAL RESECTION: -- ULCERATED COLONIC MUCOSA WITH PERICOLONIC ABSCESS. -- MARGINS VIABLE. -- PERICOLONIC LYMPH NODE WITH REACTIVE FOLLICULAR HYPERPLASIA. SPECIMEN B - TESTICLE, LEFT, ORCHIECTOMY: -- ACUTELY INFLAMED, EDEMATOUS AND HEMORRHAGIC SPERMATIC CORD WITH DILATED VESSELS. -- SPERMATIC CORD MARGIN VIABLE. -- TESTICLE AND EPIDIDYMIS WITH NO DIAGNOSTIC ALTERATIONS. (DMT:willy) PROCEDURAL IMPRESSION Incarcerated inguinal hernia; sigmoid colon injury. GROSS DESCRIPTION Specimen A: Received in formalin labeled with the patient information, is a aponte-zapata segment of colon received with both margins stapled and zapata attached fat. It is 10.8 cm in length with an average diameter of 2.3 cm and average wall thickness of 0.4 cm. The serosa is dusky zapata-brown. The dusky zapata-brown area corresponds to an ulcerated area within the mucosa. This area is 8 x 3.5 cm and extends into the fat. The remainder of the mucosa zapata with the plicated pattern. There is a 0.4 cm raised nodule. A portion extending into the fat is 4 x 3.5 cm. There are no candidate lymph nodes identified. Electrotyper Apprentice sections submitted in six cassettes: A1 - margins; A2-A3 - sections from mucosa into ulcerated; A4 - chain sales representative section through ulcerated area; A5 - raised nodule; A6 - random sections. (SCB:sln) Specimen B: Received in formalin labeled with patient identifiers only and consists of an orchiectomy specimen which weighs 73 grams. The spermatic cord measures 12.7 cm in length with an average diameter of 1.9 cm. The testis measures 3.9 x 2.7 x 2.4 cm and the epididymis measures 1.5 x 1 x 0.7 cm. Sectioning through the spermatic cord demonstrates soft tissue edema with unremarkable vas deferens and vessels. Focal areas of possible vascular calcification are noted. The tunica vaginalis has been striped from the testis. The tunica albuginea is smooth and unremarkable. Sectioning through the testis demonstrates zapata, homogeneous parenchyma with no discrete masses or lesions identified. The epididymis is zapata and appears to demonstrate areas of possible calcification, predominantly noted in the tail. No discrete masses or lesions are identified. Electrotyper Apprentice sections are submitted as follows: B1 - proximal spermatic cord margin; B2 - central spermatic cord; B3 - distal spermatic cord; B4-B6 - chain sales representative testicular parenchyma and epididmyis. (SEH:sln) Electronically Signed by: Juancho Sloan M.D.
--- NOTE | 2017-07-21 15:17 | General Surgery Progress Note ---
Subjective Patient reports: feels better, pain is less (Is protein), flatus, bowel movement , afebrile (Replace the magnesium and potassium) Narrative: Note initiated : 07/21/17 at 3:15 pm Service Date, if different from initiated Date: [] Patient: Macho Morgan 76 y/o M admitted on 07/17/17 for Colonoscopy/Perf Sigmoid Colon/Lt Inguinal Hernia. Chief Complaint: [Patient continues to do well . He has tolerated liquids without difficulty. His stoma is working nicely. His incision looks good and he has good active bowel sounds. There is no significant edema of the scrotal sac.] Is Objective Temp Pulse Resp BP Pulse Ox 99.0 F H 53 L 16 163/83 92 07/21/17 11:10 07/21/17 11:10 07/21/17 11:10 07/21/17 11:10 07/21/17 11:10 - Additional Data Intake & Output - Last 24 hours: Intake & Output 07/19/17 07/20/17 07/21/17 07/22/17 05:59 05:59 05:59 05:59 Intake Total 3159.0909 / 3159.0909 3298.0909 / 3298.0909 3208.0909 / 3208.0909 400 / 400 Output Total 4175 / 4175 1750 / 1750 3925 / 3925 1500 / 1500 Balance -1015.9091 / -1015.9091 1548.0909 / 1548.0909 -716.9091 / -716.9091 - 1100 / -1100 Weight 201 lb 200 lb 8 oz 201 lb - General physical appearance well developed, well nourished, no distress - Eyes PERRL, normal ocular movement - ENT normal pinna, normal nares, normal mucosa, no hearing loss, no congestion - Neck no masses, no bruits, trachea midline, no lymphadectomy, no venous distension - Respiratory normal expansion, normal respiratory effort, clear to percussion, clear to auscultation - Cardiovascular Cardiovascular exam: Present: normal rate and rhythm, RRR, +S1, +S2. Absent: JVD - Abdomen tender (Mild tenderness of his incision with good active bowel sounds), bowel sounds (present), surgical scars (none), masses (none) - Integumentary no rash, no growths, no abnormal pigmentation - Neurologic normal coordination, normal sensation - Musculoskeletal normal gait, normal posture - Psychiatric oriented to time, oriented to person, oriented to place, speech is normal, memory intact - Labs 07/21/17 04:00 07/21/17 04:00 Diabetes panel 07/21/17 Range/Units 04:00 Sodium 142 (133-145) mmol/L Potassium 3.0 L (3.3-5.1) mmol/L Chloride 105 (96-108) mmol/L Carbon Dioxide 25 (22-30) mmol/L BUN 10 (8-23) mg/dl Creatinine 1.0 (0.7-1.2) mg/dl Glucose 104 (70-105) mg/dL Calcium 8.4 L (8.6-10.4) mg/dl AST 13 (0-37) U/l ALT 10 (0-40) U/l Alkaline Phosphatase 54 (39-117) U/L Total Protein 5.5 L (5.9-8.4) gm/dL Albumin 2.9 L (3.2-5.2) gm/dL Triglycerides 106 (<150) mg/dl Calcium panel 07/21/17 Range/Units 04:00 Calcium 8.4 L (8.6-10.4) mg/dl Phosphorus 2.9 (2.7-4.5) mg/dL Albumin 2.9 L (3.2-5.2) gm/dL Pituitary panel 07/21/17 Range/Units 04:00 Sodium 142 (133-145) mmol/L Potassium 3.0 L (3.3-5.1) mmol/L Chloride 105 (96-108) mmol/L Carbon Dioxide 25 (22-30) mmol/L BUN 10 (8-23) mg/dl Creatinine 1.0 (0.7-1.2) mg/dl Glucose 104 (70-105) mg/dL Calcium 8.4 L (8.6-10.4) mg/dl Adrenal panel 07/21/17 Range/Units 04:00 Sodium 142 (133-145) mmol/L Potassium 3.0 L (3.3-5.1) mmol/L Chloride 105 (96-108) mmol/L Carbon Dioxide 25 (22-30) mmol/L BUN 10 (8-23) mg/dl Creatinine 1.0 (0.7-1.2) mg/dl Glucose 104 (70-105) mg/dL Calcium 8.4 L (8.6-10.4) mg/dl Total Bilirubin 0.7 (0.0-1.0) mg/dL AST 13 (0-37) U/l ALT 10 (0-40) U/l Alkaline Phosphatase 54 (39-117) U/L Total Protein 5.5 L (5.9-8.4) gm/dL Albumin 2.9 L (3.2-5.2) gm/dL Assessment and Plan (1) Incarcerated left inguinal hernia Status: Acute Assessment and plan: Incision is healing nicely without significant edema and without erythema Scrotal sac is soft without evidence of hematoma Advance to soft diet KCl 40 mEq twice daily Current Visit: Yes (2) History of esophageal cancer Status: Acute Current Visit: Yes (3) Hypertension Status: Acute Current Visit: Yes (4) Chronic kidney disease Status: Acute Current Visit: Yes (5) Sigmoid colon injury without open wound into cavity Status: Acute Assessment and plan: Incision looks good and stoma is healthy Current Visit: Yes - Time Spent With Patient Total time spent is greater than 50% in coordination of care (as documented) at patient's floor/unit and/or counseling patient:
[2017-07-21] MEDS: POTASSIUM CHLORIDE 20 MEQ TABLET PO SCH (18:03)
[2017-07-21] MEDS: TAMSULOSIN 0.4 MG CAPSULE PO SCH (19:24)
[2017-07-22] MEDS: 0.9 % SODIUM CHLORIDE 1,000 ML IV SCH ×2 (02:41→13:20)
[2017-07-22] MEDS: PIPERACILLIN SODIUM/TAZOBACTAM 3.375 GM in DEXTROSE 5% IN WATER 50 ML IV SCH ×4 (05:15→23:19)
[2017-07-22] MEDS: ENALAPRILAT 1.25 MG/ML VIAL IV SCH ×4 (05:15→23:19)
[2017-07-22] MEDS: metroNIDAZOLE 500 MG/100 ML BAG IV SCH ×3 (05:15→18:32)
[2017-07-22] MEDS: METOCLOPRAMIDE 10 MG/2 ML VIAL IV SCH ×4 (05:16→23:19)
[2017-07-22] MEDS: INSULIN LISPRO 1 UNIT/0.01 ML UNIT SQ SCH ×3 (05:24→17:36)
[2017-07-22 06:29] LABS: Basophils # (Auto) 0 K/mcL (0.0-0.3); Basophils % (Auto) 0.2 % (0.0-2.0); Eosinophils # (Auto) 0.4 K/mcL (0.0-0.7); Eosinophils % (Auto) 5.3 % (0.0-7.0); Granulocytes % (Auto) 75.6 % (38.0-78.0); Lymphocytes # (Auto) 0.9 K/mcL (1.5-4.8); Lymphocytes % (Auto) 10.7 % (15.5-49.0); Mean Cell Volume 92.4 fL (80.0-100.0); Mean Corpuscular HGB Conc 34.2 g/dL (31.0-36.0); Mean Corpuscular Hemoglobin 31.6 pg (26.0-34.0); Monocytes # (Auto) 0.7 K/mcL (0.1-0.9); Monocytes % (Auto) 8.2 % (1.0-12.0); Platelet Count 159 K/mcL (140-440); RBC 3.95 M/mcL (4.50-5.90); Red Cell Distribution Width 13.4 % (11.5-14.5)
[2017-07-22 07:17] LABS: ALT/SGPT 10 U/l (0-40); Albumin 2.8 gm/dL (3.2-5.2); Alkaline Phosphatase 52 U/L (39-117); Bilirubin,Direct < 0.2 mg/dL (0.0-0.3); Blood Urea Nitrogen 9 mg/dl (8-23); Gamma Glutamyl Transpeptidase 18 U/L (8-61); Uric Acid 2.2 mg/dL (2.5-8.0)
[2017-07-22] MEDS: PANTOPRAZOLE 40 MG VIAL IV SCH ×2 (07:30→17:43)
[2017-07-22] MEDS: SPIRONOLACTONE 25 MG TABLET PO SCH (08:25)
[2017-07-22] MEDS: POTASSIUM CHLORIDE 20 MEQ TABLET PO SCH ×2 (08:25→17:42)
[2017-07-22] MEDS: LOSARTAN 50 MG TABLET PO SCH (08:25)
[2017-07-22] MEDS: amLODIPine 10 MG TABLET PO SCH (08:26)
[2017-07-22] MEDS ORDERED: POTASSIUM CHLORIDE 40 MEQ in DEXTROSE 5% IN WATER 500 ML IV ONE ×2 (09:00→13:30)
--- NOTE | 2017-07-22 09:07 | Operative Note ---
DATE OF OPERATION: 07/17/2017 PREOPERATIVE DIAGNOSES: Perforated sigmoid colon and incarcerated left inguinal hernia. POSTOPERATIVE DIAGNOSES: Perforated sigmoid colon, incarcerated left inguinal hernia, and strangulated ischemic left testicle. PROCEDURE: Sigmoid colectomy with colostomy, explantation of Prolene mesh from previous hernia repair, left inguinal hernia repair using standard Karlee repair, and left orchiectomy. SURGEON: Shae Boyce M.D. FINDINGS: 1. Linear perforation of the sigmoid colon with dissection of fluid and gas along the mesentery. 2. Tight incarceration of the colon in the hernia sac with ecchymosis and ischemia. 3. Compression of vessels of the spermatic cord with a pulseless, aponte left testicle by Doppler with turbid fluid around the testicle in a hydrocele and a nonviable testicle. DESCRIPTION: Under general anesthesia, the abdomen and genitalia were prepped and draped in the sterile field. A lower inguinal curvilinear incision was made and extended through the subcutaneous tissue to what was felt to be the aponeurosis. While dissecting the aponeurosis, the large herniation was noted. This herniation occurred at the pubic tubercle, and it was a direct hernia which herniated under the mesh with a tight neck due to the constricting mesh. The mesh was serially and sequentially dissected from its lateral and medial attachments using Metzenbaum scissors. Once this was done, I was able to free up the large hernia sac. There was gas and obvious fecal fluid in the hernia sac. The mesh was totally removed. The peritoneal cavity was entered through a lower midline incision. Once this was done, I could see some gas in the mesentery of the bowel that entered the hernia sac. Using gentle pressure on the hernia sac and gentle tension intraperitoneally, I was able to separate the colon from the sac. The colon was densely adherent to the hernia sac and had to be using Metzenbaum scissors. Once it was , there was an apparent linear tear of the colon along the mesenteric border, and this appeared to be along the taenia with gas tracking into the mesentery. The sac was totally invaginated, and the colon was totally . The colon was then divided proximal and distal to the involved segment using Contour stapler. The mesocolon was serially dissected and transected and this segment was removed. Copious irrigation was carried out in order to remove as much contamination as possible. The testicle was then inspected. There was a small hydrocele which was opened, and the testicle appeared to be aponte and pulseless by palpation. A Doppler was then opened onto the field, and Doppler evaluation of the cord did not reveal any pulsatile flow to the testicle. It was felt that the testicle was ischemic and should be removed. The testicle was from the gubernaculum and the cord was back to the internal ring where it was doubly ligated and transected. The testicle was passed off as a separate specimen. The residual of the cord was suture ligated using two sutures of 2-0 Monocryl. Next, the area of the hernia was inspected. The Olyd's ligament was isolated, as well as the residual iliopubic tract. The internal oblique fascia was isolated on the external oblique fascia and standard relaxing incision was made. The conjoint tendon was then sutured to the pubic tubercle and Loyd's ligament with transition at the femoral canal and completion distal to the internal ring. With this closure, there was complete closure of the inguinal floor. The repair was done with 0 Prolene. Copious irrigation was carried out. The residual aponeurosis was closed with 2-0 Monocryl. The subcutaneous tissue was closed with 2-0 Monocryl. Skin was closed with hermila. The bowel was brought out in the left lower quadrant through an opening and stoma was matured using a 3-0 silk and 3-0 Monocryl. The fascia was closed after verifying that sponge, needle, instrument and blade counts were correct. The subcutaneous fat was closed with 2-0 Monocryl. Skin was closed with hermila. A dressing was placed over the incision, and the stoma was matured suturing the dermis to the end of the colon. This was done with running locking 3-0 Vicryl. A stoma appliance was placed. The patient tolerated the procedure well. He was awakened and transferred to the postanesthetic care unit in stable, satisfactory condition. LCS:suzanne Job ID: [id number] Doc ID: [id number] Shae Boyce M.D.
--- NOTE | 2017-07-22 12:06 | General Surgery Progress Note ---
Subjective Patient reports: feels better, pain is less, tolerating liquids well, flatus, bowel movement, afebrile Narrative: Note initiated : 07/22/17 at 12:03 pm Service Date, if different from initiated Date: [] Patient: Macho Morgan 76 y/o M admitted on 07/17/17 for Colonoscopy/Perf Sigmoid Colon/Lt Inguinal Hernia. Chief Complaint: [Patient is doing well and is progressing nicely. He has hypokalemia with potassium of 2.7. He is otherwise stable. His diet is advanced to regular soft. Anticipate discharge tomorrow.] Objective Temp Pulse Resp BP Pulse Ox 98.9 F 54 L 16 172/81 93 07/22/17 06:48 07/22/17 04:50 07/22/17 06:48 07/22/17 06:48 07/22/17 06:48 - Additional Data Intake & Output - Last 24 hours: Intake & Output 07/20/17 07/21/17 07/22/17 07/23/17 05:59 05:59 05:59 05:59 Intake Total 3298.0909 / 3298.0909 3208.0909 / 3208.0909 3635 / 3635 60 / 60 Output Total 1750 / 1750 3925 / 3925 4631 / 4631 600 / 600 Balance 1548.0909 / 1548.0909 -716.9091 / -716.9091 -996 / -996 -540 / -540 Weight 200 lb 8 oz 201 lb 201 lb - General physical appearance well developed, well nourished, no distress, severe distress - Eyes PERRL, normal ocular movement - ENT normal pinna, normal nares, normal mucosa, no hearing loss, no congestion - Neck no masses, no bruits, trachea midline, no lymphadectomy, no venous distension - Respiratory normal expansion, normal respiratory effort, clear to auscultation - Cardiovascular Cardiovascular exam: Present: normal rate and rhythm, RRR, +S1, +S2. Absent: JVD - Abdomen tender (Mild incisional tenderness otherwise benign abdomen; stoma looks good), bowel sounds (present), surgical scars (none), masses (none) - Integumentary no rash, no growths, no abnormal pigmentation - Neurologic normal coordination, normal sensation - Musculoskeletal normal gait, normal posture - Psychiatric oriented to time, oriented to person, oriented to place, speech is normal, memory intact - Labs 07/22/17 05:00 07/22/17 05:00 Diabetes panel 07/22/17 Range/Units 05:00 Sodium 143 (133-145) mmol/L Potassium 2.9 L* (3.3-5.1) mmol/L Chloride 105 (96-108) mmol/L Carbon Dioxide 26 (22-30) mmol/L BUN 9 (8-23) mg/dl Creatinine 0.9 (0.7-1.2) mg/dl Glucose 98 (70-105) mg/dL Calcium 8.6 (8.6-10.4) mg/dl AST 15 (0-37) U/l ALT 10 (0-40) U/l Alkaline Phosphatase 52 (39-117) U/L Total Protein 5.5 L (5.9-8.4) gm/dL Albumin 2.8 L (3.2-5.2) gm/dL Triglycerides 117 (<150) mg/dl Calcium panel 07/22/17 Range/Units 05:00 Calcium 8.6 (8.6-10.4) mg/dl Phosphorus 2.4 L (2.7-4.5) mg/dL Albumin 2.8 L (3.2-5.2) gm/dL Pituitary panel 07/22/17 Range/Units 05:00 Sodium 143 (133-145) mmol/L Potassium 2.9 L* (3.3-5.1) mmol/L Chloride 105 (96-108) mmol/L Carbon Dioxide 26 (22-30) mmol/L BUN 9 (8-23) mg/dl Creatinine 0.9 (0.7-1.2) mg/dl Glucose 98 (70-105) mg/dL Calcium 8.6 (8.6-10.4) mg/dl Adrenal panel 07/22/17 Range/Units 05:00 Sodium 143 (133-145) mmol/L Potassium 2.9 L* (3.3-5.1) mmol/L Chloride 105 (96-108) mmol/L Carbon Dioxide 26 (22-30) mmol/L BUN 9 (8-23) mg/dl Creatinine 0.9 (0.7-1.2) mg/dl Glucose 98 (70-105) mg/dL Calcium 8.6 (8.6-10.4) mg/dl Total Bilirubin 0.5 (0.0-1.0) mg/dL AST 15 (0-37) U/l ALT 10 (0-40) U/l Alkaline Phosphatase 52 (39-117) U/L Total Protein 5.5 L (5.9-8.4) gm/dL Albumin 2.8 L (3.2-5.2) gm/dL Assessment and Plan (1) Incarcerated left inguinal hernia Status: Acute Assessment and plan: Incision is healing nicely without significant edema and without erythema Scrotal sac is soft without evidence of hematoma KCl 80 mEq IV today Anticipate discharge tomorrow advance to soft diet Current Visit: Yes (2) History of esophageal cancer Status: Acute Current Visit: Yes (3) Hypertension Status: Acute Current Visit: Yes (4) Chronic kidney disease Status: Acute Current Visit: Yes (5) Sigmoid colon injury without open wound into cavity Status: Acute Assessment and plan: Incision looks good and stoma is healthy Current Visit: Yes - Time Spent With Patient Total time spent is greater than 50% in coordination of care (as documented) at patient's floor/unit and/or counseling patient:
[2017-07-22] MEDS: TAMSULOSIN 0.4 MG CAPSULE PO SCH (18:36)
[2017-07-23] MEDS: INSULIN LISPRO 1 UNIT/0.01 ML UNIT SQ SCH ×3 (00:01→11:47)
[2017-07-23] MEDS: metroNIDAZOLE 500 MG/100 ML BAG IV SCH ×3 (00:01→13:05)
[2017-07-23] MEDS: METOCLOPRAMIDE 10 MG/2 ML VIAL IV SCH ×2 (05:20→12:31)
[2017-07-23] MEDS: ENALAPRILAT 1.25 MG/ML VIAL IV SCH ×2 (05:20→12:30)
[2017-07-23] MEDS: PIPERACILLIN SODIUM/TAZOBACTAM 3.375 GM in DEXTROSE 5% IN WATER 50 ML IV SCH ×2 (05:20→12:37)
[2017-07-23 06:02] LABS: Basophils # (Auto) 0 K/mcL (0.0-0.3); Basophils % (Auto) 0.3 % (0.0-2.0); Eosinophils # (Auto) 0.6 K/mcL (0.0-0.7); Eosinophils % (Auto) 7.4 % (0.0-7.0); Lymphocytes # (Auto) 0.8 K/mcL (1.5-4.8); Lymphocytes % (Auto) 10.4 % (15.5-49.0); Mean Cell Volume 94.1 fL (80.0-100.0); Mean Corpuscular HGB Conc 33.7 g/dL (31.0-36.0); Mean Corpuscular Hemoglobin 31.8 pg (26.0-34.0); Monocytes # (Auto) 0.7 K/mcL (0.1-0.9); Monocytes % (Auto) 8.9 % (1.0-12.0); Platelet Count 170 K/mcL (140-440); RBC 3.98 M/mcL (4.50-5.90); Red Cell Distribution Width 13.7 % (11.5-14.5)
[2017-07-23] MEDS: PANTOPRAZOLE 40 MG VIAL IV SCH (07:33)
[2017-07-23] MEDS: POTASSIUM CHLORIDE 20 MEQ TABLET PO SCH (07:56)
[2017-07-23] MEDS: LOSARTAN 50 MG TABLET PO SCH (08:19)
[2017-07-23] MEDS: amLODIPine 10 MG TABLET PO SCH (08:19)
[2017-07-23] MEDS: SPIRONOLACTONE 25 MG TABLET PO SCH (08:20)
--- NOTE | 2017-07-23 11:18 | Discharge Summary ---
Providers - Providers Patient information: Note initiated : 07/23/17 at 11:11 am Service Date, if different from initiated Date: [] Patient: Macho Morgan 76 y/o M admitted on 07/17/17 for Colonoscopy/Perf Sigmoid Colon/Lt Inguinal Hernia. Chief Complaint: [] Date of admission: 07/16/17 Discharge date: 07/23/17 Attending physician: Shae Boyce Hospitalization Hospital course: 76-year-old male who sustained sigmoid colon injury in a large recurrent inguinal hernia on the left side on the day of admission. CT scan confirmed large volume of free gas in the scrotal sac with gas tracking along the mesentery into the peritoneal cavity. He had urgent exploration and it was noted that he had a recurrent hernia at the pubic tubercle with a large direct hernia protruding under the mesh that had been previously placed. This created a very tight back to the hernia with constriction of the bowel and mesentery. There was free fecal fluid in the hernia sac and the testicle was ischemic with no pulses by Doppler. The old mesh was removed in order to reduce the bowel. The bowel was then resected and a colostomy was placed because of the contamination into the peritoneal cavity once the bowel was reduced. The hernia was repaired using a standard Karlee repair using Prolene. Copious irrigation of the pelvis was carried out and the abdomen was closed. He did not have any perioperative problems. The testicle was removed because it was ischemic and infected. In the postoperative. The patient did very well. He started having flatus on the second postoperative day was having bowel movements by the third postoperative day. His diet was advanced appropriately. He did have problems with hypokalemia and received multiple doses of potassium chloride orally and intravenously. He is clinically stable at this time and is discharged home on oral potassium. He has received 7 days of antibiotics and should not need any further antibiotic coverage. Discharge diagnosis: Colonic perforation with early abscess Secondary discharge diagnosis: Recurrent direct left inguinal hernia Ischemic left testicle Reason for admission: Colonic perforation status post colonoscopy Procedures: Segmental sigmoid colectomy with Davila's pouch and colostomy Repair of recurrent left inguinal hernia Left orchiectomy Pertinent studies/significant findings: CT of abdomen and pelvis with IV contrast Complications: No perioperative complications Exam Temp Pulse Resp BP Pulse Ox 98.9 F 57 L 16 167/79 93 07/23/17 07:25 07/23/17 04:00 07/23/17 07:25 07/23/17 09:41 07/23/17 07:25 - General physical appearance well developed, well nourished, no distress - Eyes PERRL, normal ocular movement - ENT normal pinna, normal nares, normal mucosa, no hearing loss, no congestion - Head Head exam IM: Present: atraumatic, normocephalic - Neck no masses, no bruits, trachea midline, no lymphadectomy, no venous distension - Cardiovascular Cardiovascular exam IM: Present: normal rate and rhythm - Respiratory normal expansion, normal respiratory effort, clear to percussion, clear to auscultation - Abdomen Abdomen: Present: soft, tender (Mild tenderness of the incision; good active bowel sounds; functioning stoma left lower quadrant; healing left inguinal hernia repair), bowel sounds Hernia: Present: none - Genitourinary Present: normal penis with no external lesions - Integumentary Present: no rash, no growths, no abnormal pigmentation - Neurologic Present: normal coordination, normal sensation - Musculoskeletal Present: normal gait, normal posture - Psychiatric Present: oriented to time, oriented to person, oriented to place, speech is normal, memory intact Discharge Plan - Patient/Caregiver Discharge Instructions Activity: increase activity as tolerated Diet: Regular Diet Additional Instructions: Leave dressings in place until you return to the office Advance your diet as tolerated Prescriptions: HYDROcodone/ACETAMINOPHEN [Hydrocodon-Acetaminophn 10-325] 1 each PO Q4HP PRN # 60 tab PRN Reason: Pain Level > 6 - Follow up Plan Follow up with: Shae Boyce MD [Physician] - Jarek Mckeon MD [Physician] - 07/25/17 12:15 pm Disposition: Home, Self-Care Prognosis: Good Rehab Potential: Good I certify that the patient requires SNF services.: No Overall status at discharge: patient is not back to baseline Pending Studies Resuscitation Status Full Code Diet GI Soft/Transitional Start FriJul 22 825 Amlodipine Besylate (Norvasc) 10 mg PO DAILY ANA Last Admin: 07/23/17 08:19 Dose: 10 mg Admin: 07/22/17 08:26 Dose: 10 mg Admin: 07/21/17 08:47 Dose: 10 mg Admin: 07/20/17 10:28 Dose: 10 mg Diagnostic Test (Pha) (Accu-Chek) 1 each FS Q6 ANA Last Admin: 07/23/17 07:30 Dose: 1 each Admin: 07/23/17 00:01 Dose: 1 each Admin: 07/22/17 17:36 Dose: 1 each Admin: 07/22/17 12:06 Dose: 1 each Admin: 07/22/17 05:23 Dose: 1 each Admin: 07/21/17 23:53 Dose: 1 each Admin: 07/21/17 18:05 Dose: 1 each Admin: 07/21/17 12:43 Dose: 1 each Admin: 07/21/17 05:40 Dose: 1 each Admin: 07/21/17 00:26 Dose: 1 each Admin: 07/20/17 17:35 Dose: 1 each Admin: 07/20/17 11:22 Dose: 1 each Admin: 07/20/17 06:14 Dose: 1 each Admin: 07/19/17 23:47 Dose: 1 each Admin: 07/19/17 17:41 Dose: 1 each Admin: 07/19/17 12:09 Dose: 1 each Admin: 07/19/17 06:08 Dose: 1 each Admin: 07/19/17 00:09 Dose: 1 each Admin: 07/18/17 17:53 Dose: 1 each Admin: 07/18/17 12:18 Dose: 1 each Admin: 07/18/17 05:55 Dose: 1 each Admin: 07/18/17 00:48 Dose: 1 each Admin: 07/17/17 18:17 Dose: 1 each Admin: 07/17/17 11:59 Dose: 1 each Admin: 07/17/17 07:50 Dose: 1 each Admin: 07/17/17 06:12 Dose: 1 each Enalaprilat (Vasotec) 2.5 mg IV Q6 ANA Last Admin: 07/23/17 05:20 Dose: 2.5 mg Admin: 07/22/17 23:19 Dose: 2.5 mg Admin: 07/22/17 17:43 Dose: 2.5 mg Admin: 07/22/17 12:52 Dose: 2.5 mg Admin: 07/22/17 05:15 Dose: 2.5 mg Admin: 07/21/17 23:41 Dose: 2.5 mg Admin: 07/21/17 18:03 Dose: 2.5 mg Admin: 07/21/17 12:50 Dose: 2.5 mg Admin: 07/21/17 05:40 Dose: 2.5 mg Admin: 07/20/17 23:48 Dose: 2.5 mg Admin: 07/20/17 17:13 Dose: 2.5 mg Admin: 07/20/17 11:15 Dose: 2.5 mg Admin: 07/20/17 05:21 Dose: 2.5 mg Admin: 07/19/17 23:44 Dose: 2.5 mg Admin: 07/19/17 17:36 Dose: 2.5 mg Admin: 07/19/17 12:07 Dose: 2.5 mg Admin: 07/19/17 07:00 Dose: 2.5 mg Admin: 07/18/17 23:56 Dose: 2.5 mg Admin: 07/18/17 18:45 Dose: 2.5 mg Admin: 07/18/17 11:54 Dose: 2.5 mg Admin: 07/18/17 05:50 Dose: 2.5 mg Admin: 07/18/17 00:43 Dose: 2.5 mg Admin: 07/17/17 17:56 Dose: 2.5 mg Admin: 07/17/17 12:01 Dose: 2.5 mg Admin: 07/17/17 06:07 Dose: Not Given Metronidazole (Flagyl) 500 mg in 100 mls @ 100 mls/hr IV Q6H ANA Last Admin: 07/23/17 06:19 Dose: 100 mls/hr Infusion: 07/23/17 01:01 Dose: 100 mls/hr Admin: 07/23/17 00:01 Dose: 100 mls/hr Infusion: 07/22/17 19:32 Dose: 100 mls/hr Admin: 07/22/17 18:32 Dose: 100 mls/hr Infusion: 07/22/17 13:52 Dose: 100 mls/hr Admin: 07/22/17 12:52 Dose: 100 mls/hr Infusion: 07/22/17 06:15 Dose: 100 mls/hr Admin: 07/22/17 05:15 Dose: 100 mls/hr Infusion: 07/22/17 00:41 Dose: 100 mls/hr Admin: 07/21/17 23:41 Dose: 100 mls/hr Infusion: 07/21/17 19:05 Dose: 100 mls/hr Admin: 07/21/17 18:05 Dose: 100 mls/hr Infusion: 07/21/17 13:50 Dose: 100 mls/hr Admin: 07/21/17 12:50 Dose: 100 mls/hr Infusion: 07/21/17 06:29 Dose: 100 mls/hr Admin: 07/21/17 05:29 Dose: 100 mls/hr Infusion: 07/21/17 00:47 Dose: 0 mls/hr Admin: 07/20/17 23:47 Dose: 100 mls/hr Infusion: 07/20/17 19:00 Dose: 0 mls/hr Admin: 07/20/17 17:59 Dose: 100 mls/hr Infusion: 07/20/17 12:50 Dose: 0 mls/hr Admin: 07/20/17 11:23 Dose: 100 mls/hr Infusion: 07/20/17 07:14 Dose: 100 mls/hr Admin: 07/20/17 06:14 Dose: 100 mls/hr Infusion: 07/20/17 00:41 Dose: 0 mls/hr Admin: 07/19/17 23:41 Dose: 100 mls/hr Infusion: 07/19/17 19:15 Dose: 100 mls/hr Admin: 07/19/17 18:15 Dose: 100 mls/hr Infusion: 07/19/17 12:28 Dose: 100 mls/hr Admin: 07/19/17 11:28 Dose: 100 mls/hr Infusion: 07/19/17 08:01 Dose: 100 mls/hr Admin: 07/19/17 07:01 Dose: 100 mls/hr Infusion: 07/19/17 01:39 Dose: 100 mls/hr Admin: 07/19/17 00:39 Dose: 100 mls/hr Infusion: 07/18/17 19:55 Dose: 100 mls/hr Admin: 07/18/17 18:55 Dose: 100 mls/hr Infusion: 07/18/17 12:54 Dose: 100 mls/hr Admin: 07/18/17 11:54 Dose: 100 mls/hr Infusion: 07/18/17 06:50 Dose: 100 mls/hr Admin: 07/18/17 05:50 Dose: 100 mls/hr Infusion: 07/18/17 00:07 Dose: 100 mls/hr Admin: 07/17/17 23:07 Dose: 100 mls/hr Infusion: 07/17/17 18:56 Dose: 100 mls/hr Admin: 07/17/17 17:56 Dose: 100 mls/hr Infusion: 07/17/17 13:01 Dose: 100 mls/hr Admin: 07/17/17 12:01 Dose: 100 mls/hr Infusion: 07/17/17 08:25 Dose: 100 mls/hr Admin: 07/17/17 07:25 Dose: 100 mls/hr Admin: 07/17/17 02:54 Dose: Not Given Sodium Chloride (Sodium Chloride 0.9%) 1,000 mls @ 100 mls/hr IV .Q10H ANA Last Admin: 07/22/17 13:20 Dose: Not Given Infusion: 07/22/17 13:06 Dose: 100 mls/hr Admin: 07/22/17 02:41 Dose: 100 mls/hr Infusion: 07/22/17 02:41 Dose: 100 mls/hr Admin: 07/21/17 18:05 Dose: Not Given Admin: 07/21/17 18:02 Dose: 100 mls/hr Infusion: 07/21/17 10:30 Dose: 100 mls/hr Admin: 07/21/17 07:25 Dose: Not Given Admin: 07/20/17 23:44 Dose: 100 mls/hr Admin: 07/20/17 09:07 Dose: Not Given Infusion: 07/20/17 08:23 Dose: 100 mls/hr Admin: 07/19/17 22:23 Dose: 100 mls/hr Infusion: 07/19/17 17:01 Dose: 100 mls/hr Admin: 07/19/17 16:20 Dose: Not Given Admin: 07/19/17 07:01 Dose: 100 mls/hr Admin: 07/19/17 06:08 Dose: Not Given Infusion: 07/19/17 03:14 Dose: 100 mls/hr Admin: 07/18/17 17:14 Dose: 100 mls/hr Infusion: 07/18/17 17:14 Dose: 0 mls/hr Admin: 07/18/17 07:13 Dose: 100 mls/hr Infusion: 07/18/17 03:56 Dose: 100 mls/hr Admin: 07/17/17 22:25 Dose: Not Given Admin: 07/17/17 17:56 Dose: 100 mls/hr Infusion: 07/17/17 12:15 Dose: 100 mls/hr Admin: 07/17/17 12:01 Dose: Not Given Admin: 07/17/17 02:15 Dose: 100 mls/hr Piperacillin Sod/Tazobactam (Sod 3.375 gm/ Dextrose) 50 mls @ 100 mls/hr IV Q6H ANA Last Admin: 07/23/17 05:20 Dose: 100 mls/hr Infusion: 07/22/17 23:49 Dose: 100 mls/hr Admin: 07/22/17 23:19 Dose: 100 mls/hr Infusion: 07/22/17 18:13 Dose: 100 mls/hr Admin: 07/22/17 17:43 Dose: 100 mls/hr Infusion: 07/22/17 12:40 Dose: 100 mls/hr Admin: 07/22/17 12:05 Dose: 100 mls/hr Infusion: 07/22/17 05:45 Dose: 100 mls/hr Admin: 07/22/17 05:15 Dose: 100 mls/hr Infusion: 07/22/17 00:11 Dose: 100 mls/hr Admin: 07/21/17 23:41 Dose: 100 mls/hr Infusion: 07/21/17 18:35 Dose: 100 mls/hr Admin: 07/21/17 18:05 Dose: 100 mls/hr Infusion: 07/21/17 13:19 Dose: 100 mls/hr Admin: 07/21/17 12:49 Dose: 100 mls/hr Infusion: 07/21/17 05:59 Dose: 100 mls/hr Admin: 07/21/17 05:29 Dose: 100 mls/hr Infusion: 07/21/17 00:56 Dose: 0 mls/hr Admin: 07/21/17 00:26 Dose: 100 mls/hr Infusion: 07/20/17 18:02 Dose: 0 mls/hr Admin: 07/20/17 17:28 Dose: 100 mls/hr Infusion: 07/20/17 13:20 Dose: 100 mls/hr Admin: 07/20/17 12:50 Dose: 100 mls/hr Infusion: 07/20/17 05:51 Dose: 100 mls/hr Admin: 07/20/17 05:21 Dose: 100 mls/hr Infusion: 07/20/17 01:20 Dose: 0 mls/hr Admin: 07/20/17 00:50 Dose: 100 mls/hr Infusion: 07/19/17 18:04 Dose: 0 mls/hr Admin: 07/19/17 17:34 Dose: 100 mls/hr Infusion: 07/19/17 13:06 Dose: 100 mls/hr Admin: 07/19/17 12:36 Dose: 100 mls/hr Infusion: 07/19/17 06:41 Dose: 100 mls/hr Admin: 07/19/17 06:11 Dose: 100 mls/hr Infusion: 07/19/17 00:26 Dose: 0 mls/hr Admin: 07/18/17 23:56 Dose: 100 mls/hr Infusion: 07/18/17 18:23 Dose: 100 mls/hr Admin: 07/18/17 17:53 Dose: 100 mls/hr Infusion: 07/18/17 12:40 Dose: 0 mls/hr Admin: 07/18/17 12:01 Dose: 100 mls/hr Infusion: 07/18/17 05:36 Dose: 100 mls/hr Admin: 07/18/17 05:06 Dose: 100 mls/hr Infusion: 07/18/17 01:14 Dose: 100 mls/hr Admin: 07/18/17 00:44 Dose: 100 mls/hr Infusion: 07/17/17 18:27 Dose: 100 mls/hr Admin: 07/17/17 17:57 Dose: 100 mls/hr Infusion: 07/17/17 12:13 Dose: 100 mls/hr Admin: 07/17/17 11:43 Dose: 100 mls/hr Infusion: 07/17/17 07:55 Dose: 100 mls/hr Admin: 07/17/17 07:25 Dose: 100 mls/hr Infusion: 07/17/17 06:35 Dose: 0 mls/hr Admin: 07/17/17 02:15 Dose: 100 mls/hr Insulin Human Lispro (Humalog) 0 unit SQ Q6 [facility] PRN Reason: Protocol Last Admin: 07/23/17 07:32 Dose: Not Given Admin: 07/23/17 00:01 Dose: Admin: 07/22/17 17:36 Dose: Not Given Admin: 07/22/17 12:11 Dose: Not Given Admin: 07/22/17 05:24 Dose: Admin: 07/21/17 23:54 Dose: Admin: 07/21/17 18:06 Dose: Not Given Admin: 07/21/17 12:44 Dose: Not Given Admin: 07/21/17 05:41 Dose: Not Given Admin: 07/21/17 00:26 Dose: Not Given Admin: 07/20/17 17:35 Dose: Not Given Admin: 07/20/17 11:22 Dose: Not Given Admin: 07/20/17 06:20 Dose: Not Given Admin: 07/19/17 23:48 Dose: Not Given Admin: 07/19/17 17:41 Dose: Not Given Admin: 07/19/17 12:09 Dose: Not Given Admin: 07/19/17 06:14 Dose: Not Given Admin: 07/19/17 00:39 Dose: Not Given Admin: 07/18/17 17:54 Dose: Not Given Admin: 07/18/17 12:18 Dose: Not Given Admin: 07/18/17 05:56 Dose: Not Given Admin: 07/18/17 00:49 Dose: Not Given Admin: 07/17/17 18:18 Dose: Not Given Admin: 07/17/17 11:59 Dose: Not Given Admin: 07/17/17 06:25 Dose: 2 unit Losartan Potassium (Cozaar) 50 mg PO DAILY [facility] Last Admin: 07/23/17 08:19 Dose: 50 mg Admin: 07/22/17 08:25 Dose: 50 mg Admin: 07/21/17 08:47 Dose: 50 mg Metoclopramide HCl (Reglan) 10 mg IV Q6 [facility] Last Admin: 07/23/17 05:20 Dose: 10 mg Admin: 07/22/17 23:19 Dose: 10 mg Admin: 07/22/17 17:43 Dose: 10 mg Admin: 07/22/17 12:51 Dose: 10 mg Admin: 07/22/17 05:16 Dose: 10 mg Admin: 07/21/17 23:42 Dose: 10 mg Admin: 07/21/17 18:03 Dose: 10 mg Admin: 07/21/17 12:50 Dose: 10 mg Admin: 07/21/17 05:40 Dose: 10 mg Admin: 07/20/17 23:48 Dose: 10 mg Admin: 07/20/17 17:26 Dose: 10 mg Admin: 07/20/17 11:23 Dose: 10 mg Admin: 07/20/17 05:21 Dose: 10 mg Admin: 07/19/17 23:43 Dose: 10 mg Admin: 07/19/17 17:35 Dose: 10 mg Admin: 07/19/17 11:29 Dose: 10 mg Admin: 07/19/17 07:00 Dose: 10 mg Admin: 07/18/17 23:56 Dose: 10 mg Admin: 07/18/17 18:45 Dose: 10 mg Admin: 07/18/17 11:54 Dose: 10 mg Admin: 07/18/17 05:50 Dose: 10 mg Admin: 07/18/17 00:43 Dose: 10 mg Admin: 07/17/17 17:56 Dose: 10 mg Admin: 07/17/17 11:59 Dose: 10 mg Admin: 07/17/17 06:07 Dose: Not Given Pantoprazole Sodium (Protonix) 40 mg IV BIDAC [facility] Last Admin: 07/23/17 07:33 Dose: 40 mg Admin: 07/22/17 17:43 Dose: 40 mg Admin: 07/22/17 07:30 Dose: 40 mg Admin: 07/21/17 18:02 Dose: 40 mg Admin: 07/21/17 07:25 Dose: 40 mg Admin: 07/20/17 17:18 Dose: 40 mg Admin: 07/20/17 08:20 Dose: 40 mg Admin: 07/19/17 17:33 Dose: 40 mg Admin: 07/19/17 08:38 Dose: 40 mg Admin: 07/18/17 17:15 Dose: 40 mg Admin: 07/18/17 07:09 Dose: 40 mg Admin: 07/17/17 17:00 Dose: 40 mg Admin: 07/17/17 07:22 Dose: 40 mg Potassium Chloride (Kdur) 40 meq PO BIDCC [facility] Last Admin: 07/23/17 07:56 Dose: 40 meq Admin: 07/22/17 17:42 Dose: 40 meq Admin: 07/22/17 08:25 Dose: 40 meq Admin: 07/21/17 18:03 Dose: 40 meq Spironolactone (Aldactone) 25 mg PO DAILY [facility] Last Admin: 07/23/17 08:20 Dose: 25 mg Admin: 07/22/17 08:25 Dose: 25 mg Admin: 07/21/17 08:46 Dose: 25 mg Admin: 07/20/17 10:28 Dose: 25 mg Tamsulosin HCl (Flomax) 0.4 mg PO DAILY@1900 [facility] Last Admin: 07/22/17 18:36 Dose: 0.4 mg Admin: 07/21/17 19:24 Dose: 0.4 mg Admin: 07/20/17 19:13 Dose: 0.4 mg Shift Summary 07/23/17 04:50 Shift Summary by Joaquín Neves Pt has again rested well tonight - up (I) w/ FWW @ bedside to void per urinal QS frequently. Colostomy LLQ - sm amt liquid brown stool. Implanted port RT chest accessed - flushed & saline locked. Saline lock to LT wrist - flushed & patent. Midline & LLQ ABD surgical incisions remain well approx. w/ hermila in place - covered w/ Tegaderm dressings - sl pink @ staple sites - no drainage. Patient continues to deny pain or nausea. Q6hr blood sugar monitor - last was 106 @ midnight. VS - B/P remains mod elevated - scheduled IV Vasotec & 2x PO B/ P meds. H.R. runs sl zhane consistently - all other VS WNL on R.A.. He is tolerating soft diet well. Pt remains calm, pleasant, & cooperative. He will D/ C later today. Initialized on 07/23/17 04:50 - END OF NOTE
[2017-07-23] MEDS ORDERED: HEPARIN SODIUM,PORCINE/PF 500 UNIT/5 ML SYRINGE IV ONE (13:30)
== END 2017-07-23 14:00 | disposition home or self-care (01) | DRG 329 ==
LOC: MEDSUR 12:31 → SSSU 12:31 → MEDSUR 18:45
PROVIDERS: ADMIT Family Medicine Adult Medicine; ATTEND Family Medicine Adult Medicine